=== PATIENT | female | born 1960 | race Caucasian/White ===

== ENCOUNTER 2020-12-21 19:29 | Inpatient (IN) ==
[2020-12-21] MEDS ORDERED: LACTATED RINGERS 1,000 ML IV ONE ×2 (19:47→21:20)
--- NOTE | 2020-12-21 19:53 | Emergency Department Note ---
HPI General Chief complaint: Cold/Flu Symptoms Stated complaint: fever, cough, weakness Time Seen by Provider: 12/21/20 19:47 Source: patient Mode of arrival: ambulatory Limitations: no limitations History of Present Illness HPI Narrative: Patient is a 60-year-old lady who arrives to the emergency department accompanied by her complaining of a cough. The patient says she has been having a cough since having an abdominoplasty several days ago. She had to undergo revision recently due to a fluid pocket following the initial procedure. Over the past several days she has been having worsening cough as w ell as some shortness of breath decreased exercise tolerance fever and chills. She was also hypotensive at home yesterday. She has noted some increasing drainage from her wound that is foul-smelling today. She has tried taking antipyretics and analgesics at home without much improvement in her symptoms. Due to the persistent nature of her symptoms she decided to come in for further evaluation this evening. Related Data Home Medications Medication Instructions Recorded Confirmed levothyroxine 25 mcg PO DAILY 01/08/17 11/18/18 estradiol 2 mg PO DAILY 11/28/17 11/18/18 oxycodone-acetaminophen 5 mg-325 1 tab PO Q6H 09/15/18 11/18/18 mg tablet Previous Rx's Medication Instructions Recorded gplyoljjrrdajaa-bqvrmmqxcyrfeou-HO 10 ml PO Q6H #120 ml 11/18/18 2 mg-30 mg-10 mg/5 mL oral syrup fluticasone propionate 50 2 spray INTRANASAL QDAY #16 g 11/18/18 mcg/actuation nasal spray,suspension prednisone 20 mg tablet 20 mg PO BID #10 tab 11/18/18 Allergies Allergy/AdvReac Type Severity Reaction Status Date / Time tramadol Allergy Intermediate Itching Verified 11/18/18 10:36 Review of Systems ROS ROS Narrative: Narrative: All systems ED: reviewed and negative except as stated. Cardiovascular: Reports chest pain Respiratory: Reports shortness of breath and cough Gastrointestinal: Reports nausea; Denies vomiting PFSH Narrative Patient History Narrative: Narrative: Medical/Surgical/Family History All Active Problems (Updated 12/22/20 @ 01:43 by Miguel Ramirez DO) Upper respiratory infection (Acute) Otitis media (Acute) Bronchitis (Acute) Candidal vaginitis (Acute) Respiratory crackles 1/4 way up posterior chest wall on left side (Acute) RUQ abdominal pain (Acute) Right flank discomfort (Acute) Cellulitis of trunk (Acute) Sepsis (Acute) Wheezing (Acute) Sinusitis, acute (Acute) Medical History (Updated 12/22/20 @ 01:43 by Miguel Ramirez DO) Upper respiratory infection Social History Smoking Status: Former smoker Alcohol Intake Frequency: a few times a month Substance Use: does not use Exam Narrative Narrative: Gen -patient is awake and alert and in no acute distress. HEENT -head is atraumatic. There is no conjunctival pallor or scleral icterus. CV -S1-S2, tachycardic and regular peripheral pulses are palpable. Resp -breathing is nonlabored. Have mild crackles at the bases right greater than left there is no cyanosis. GI - Abdomen is soft and mildly tender to palpation diffusely. There is a low transverse abdominal incision with multiple black nylon sutures in place. There is significant surrounding erythema and palpable warmth to the soft tissues. There is a small amount of purulent foul-smelling drainage from the incision site.. There is no guarding or rebound tenderness. Derm -skin is warm and dry. MSK -present extremities are atraumatic. Psych -patient has appropriate affect. Neuro -patient answers questions appropriately with fluent speech. Patient moves all present extremities equally. General Limitations: no limitations Course Vital Signs Vital signs: Vital Signs Temperature 99.7 F H 12/21/20 19:31 Pulse Rate 126 H 12/21/20 19:31 Respiratory Rate 16 12/21/20 19:31 Blood Pressure 132/86 12/21/20 19:31 Pulse Oximetry (%) 96 12/21/20 19:31 Temperature 99.7 F H 12/21/20 19:31 Pulse Rate 100 H 12/22/20 00:35 Respiratory Rate 16 12/21/20 19:31 Blood Pressure 110/54 12/21/20 23:46 Pulse Oximetry (%) 93 12/22/20 00:35 [facility] Narrative Medical decision making narrative: Patient presents with fever increasing pain around her incision site and purulent drainage as well as shortness of breath. Initial concern was for pneumonia or possible operative site infection. Chest x-ray does not reveal any acute infiltrates. Given this and the lack of explanation for significant dyspnea on exertion, I did obtain a CT pulmonary angiogram. This was interpreted by the overnight radiologist as demonstrating no pulmonary infiltrates or pulmonary emboli. Labs are remarkable for minimal leukocytosis and normal lactate. She remained slightly tachycardic and somewhat uncomfortable appearing throughout her emergency department stay. Given this as well as the cellulitis surrounding the patient's incision site I attempted to contact her surgeon Dr. Aguila, but was unable to reach him as he is not currently educational recruiter. I do not think the patient has a surgical emergency at this time and think it would be reasonable to admit her for IV antibiotics and close monitoring until Dr. Aguila is available. I discussed the patient's history examination and diagnostic findings with Dr. Soto, who agrees with the plan of care and accepts admission. Lab Data Result diagrams: 12/21/20 19:58 Labs: Lab Results 12/21/20 12/21/20 12/21/20 Range/Units 19:58 19:58 19:58 WBC 12.3 H (4.5-11.0) K/mcL RBC 3.63 L (4.00-5.20) M/mcL Hgb 12.4 (12.0-15.0) g/dL Hct 35.6 L (36.0-48.0) % POC Hct 37 (36-48) % MCV 98.1 (80.0-100.0) fL MCH 34.2 H (26.0-34.0) pg MCHC 34.8 (31.0-36.0) g/dL RDW 12.6 (11.5-14.5) % Plt Count 296 (140-440) K/mcL MPV 9.6 (7.4-10.4) fL Neut % (Auto) 91.5 H (38.0-78.0) % Lymph % (Auto) 1.6 L (15.0-49.0) % [place] % (Auto) 1.5 (1.0-12.0) % Eos % (Auto) 5.2 (0.0-7.0) % Baso % (Auto) 0.2 (0.0-2.0) % Lymph # (Auto) 0.20 L (1.50-4.80) K/mcL [place] # (Auto) 0.18 (0.10-0.90) K/mcL Eos # (Auto) 0.64 (0.00-0.70) K/mcL Baso # (Auto) 0.03 (0.00-0.20) K/mcL Absolute Neutrophils 11.24 H (1.80-8.00) K/mcL VBG Lactic Acid 1.3 (0.5-2.0) mmol/L POC Sodium 131 L (133-145) mEq/L POC Potassium 3.4 (3.3-5.1) mEql/L POC Chloride 103 (96-108) mEq/L POC Total CO2 19 L (22-30) mmol/L POC BUN 20 (6-20) mg/dL POC Creatinine 0.8 (0.6-1.2) mg/dL POC Glucose 117 H (70-105) mg/dL POC WB Ioniz Calcium 0.97 L (1.16-1.32) mmEq/L Urine Color Urine Appearance (Clear) Urine pH (5.0-9.0) Ur Specific [place] (1.000-1.035) Urine Protein (Negative) mg/dL Urine Glucose (UA) (Negative) mg/dL Urine Ketones (Negative) mg/dL Urine Occult Blood (Negative) mg/dL Urine Nitrate (Negative) Urine Bilirubin (Negative) mg/dL Urine Urobilinogen mg/dL Ur Leukocyte Esterase (Negative) /ug Ur Culture Indicated? 12/21/20 Range/Units 20:55 WBC (4.5-11.0) K/mcL RBC (4.00-5.20) M/mcL Hgb (12.0-15.0) g/dL Hct (36.0-48.0) % POC Hct (36-48) % MCV (80.0-100.0) fL MCH (26.0-34.0) pg MCHC (31.0-36.0) g/dL RDW (11.5-14.5) % Plt Count (140-440) K/mcL MPV (7.4-10.4) fL Neut % (Auto) (38.0-78.0) % Lymph % (Auto) (15.0-49.0) % [place] % (Auto) (1.0-12.0) % Eos % (Auto) (0.0-7.0) % Baso % (Auto) (0.0-2.0) % Lymph # (Auto) (1.50-4.80) K/mcL [place] # (Auto) (0.10-0.90) K/mcL Eos # (Auto) (0.00-0.70) K/mcL Baso # (Auto) (0.00-0.20) K/mcL Absolute Neutrophils (1.80-8.00) K/mcL VBG Lactic Acid (0.5-2.0) mmol/L POC Sodium (133-145) mEq/L POC Potassium (3.3-5.1) mEql/L POC Chloride (96-108) mEq/L POC Total CO2 (22-30) mmol/L POC BUN (6-20) mg/dL POC Creatinine (0.6-1.2) mg/dL POC Glucose (70-105) mg/dL POC WB Ioniz Calcium (1.16-1.32) mmEq/L Urine Color Bettie Urine Appearance Hazy A (Clear) Urine pH 5.0 (5.0-9.0) Ur Specific [place] 1.019 (1.000-1.035) Urine Protein Negative (Negative) mg/dL Urine Glucose (UA) Negative (Negative) mg/dL Urine Ketones Negative (Negative) mg/dL Urine Occult Blood Negative (Negative) mg/dL Urine Nitrate Negative (Negative) Urine Bilirubin Negative (Negative) mg/dL Urine Urobilinogen Negative mg/dL Ur Leukocyte Esterase Negative (Negative) /ug Ur Culture Indicated? No ED POC Tests ED POC Tests: ORACIO - SARS Antigen Negative Discharge Plan Patient/Caregiver Discharge Instructions Pt seen by TRACER BULLET CHARGING MACHINE OPERATOR/PA only: No Clinical Impression: Cellulitis of trunk, Sepsis Patient Disposition: Xfer As Inpt ([facility]) Condition: Good
[2020-12-21] MEDS ORDERED: cefTRIAXone 1 GM in DEXTROSE 5% IN WATER 50 ML IV SCH (20:00)
[2020-12-21 20:13] LABS: POC Blood Urea Nitrogen 20 mg/dL (6-20); POC CO2 19 mmol/L (22-30); POC Calcium, Ionized 0.97 mmEq/L (1.16-1.32); POC Chloride 103 mEq/L (96-108); POC Creatinine 0.8 mg/dL (0.6-1.2); POC Glucose, Random 117 mg/dL (70-105); POC Hematocrit 37 % (36-48); POC Potassium 3.4 mEql/L (3.3-5.1); POC Sodium 131 mEq/L (133-145)
[2020-12-21 21:12] LABS: Basophils # (Auto) 0.03 K/mcL (0.00-0.20); Basophils % (Auto) 0.2 % (0.0-2.0); Eosinophils # (Auto) 0.64 K/mcL (0.00-0.70); Eosinophils % (Auto) 5.2 % (0.0-7.0); Hematocrit 35.6 % (36.0-48.0); Hemoglobin 12.4 g/dL (12.0-15.0); Lymphocytes % (Auto) 1.6 % (15.0-49.0); Mean Cell Volume 98.1 fL (80.0-100.0); Mean Corpuscular HGB Conc 34.8 g/dL (31.0-36.0); Mean Platelet Volume 9.6 fL (7.4-10.4); Monocytes # (Auto) 0.18 K/mcL (0.10-0.90); Monocytes % (Auto) 1.5 % (1.0-12.0); Neutrophils % (Auto) 91.5 % (38.0-78.0); Platelet Count 296 K/mcL (140-440); RBC 3.63 M/mcL (4.00-5.20); Red Cell Distribution Width 12.6 % (11.5-14.5); WBC 12.3 K/mcL (4.5-11.0)
[2020-12-21 22:06] LABS: Appearance,Urine HAZY (Clear); Bilirubin,Urine Negative (Negative); Color,Urine AMBER; Culture Indicated,Urine No; Glucose,Urine (UA) Negative (Negative); Ketones,Urine Negative (Negative); Leukocyte Esterase,Urine Negative /ug (Negative); Nitrate,Urine Negative (Negative); Protein,Urine Negative (Negative); Specific Gravity,Urine 1.019 (1.000-1.035); Urine Blood Negative (Negative); Urobilinogen,Urine Negative
[2020-12-21] MEDS ORDERED: morphine 4 MG/ML VIAL IV ONE (23:14)
[2020-12-21] MEDS ORDERED: VANCOMYCIN 1,000 MG in 0.9 % SODIUM CHLORIDE 250 ML IV ONE (23:52)
[2020-12-22] MEDS ORDERED: MELATONIN 3 MG TABLET PO ONE (01:15)
[2020-12-22] MEDS: 0.9 % SODIUM CHLORIDE 1,000 ML IV SCH ×5 (01:50→15:34)
[2020-12-22] MEDS ORDERED: ONDANSETRON 4 MG/2 ML VIAL IV PRN ×2 (02:53→07:07)
[2020-12-22] MEDS ORDERED: oxyCODONE/APAP 5/325MG TABLET PO ONE (02:58)
[2020-12-22] MEDS: oxyCODONE/APAP 5/325MG TABLET PO PRN ×6 (03:01→18:52)
[2020-12-22] MEDS: BENZOCAINE/MENTHOL 1 LOZENGE PO PRN ×3 (07:03→22:03)
[2020-12-22] MEDS ORDERED: POTASSIUM CHLORIDE 20 MEQ PACKET PO PRN (07:07)
[2020-12-22] MEDS ORDERED: POTASSIUM CHLORIDE 40 MEQ in DEXTROSE 5% IN WATER 500 ML IV PRN (07:07)
[2020-12-22] MEDS ORDERED: ONDANSETRON 4 MG ODT TABLET SL PRN (07:07)
[2020-12-22] MEDS ORDERED: BISACODYL 10 MG SUPP.RECT PR PRN (07:07)
[2020-12-22] MEDS ORDERED: MELATONIN 3 MG TABLET PO PRN (07:07)
[2020-12-22] MEDS ORDERED: MAGNESIUM SULFATE 2 GM/50 ML BAG IV PRN (07:07)
[2020-12-22] MEDS ORDERED: POLYETHYLENE GLYCOL 3350 17 GM PACKET PO PRN (07:07)
[2020-12-22] MEDS ORDERED: VANCOMYCIN PER PHARMACY IV SCH (07:15)
--- NOTE | 2020-12-22 08:00 | XRay Report ---
HISTORY: Pneumonia, fever, cough, weakness FINDINGS: The lungs are clear. The heart, mediastinum, hortencia and pleura are normal. A mild dextroscoliotic curvature is present. The patient had prior fusion in the lower neck. There is disc space narrowing and spur formation in the lower thoracic spine IMPRESSION: No evidence of pneumonia or acute abnormality Interpreted and Authenticated by: Massimo Grullon 12/22/20
--- NOTE | 2020-12-22 08:17 | Cat Scan Report ---
History: Pneumonia, dyspnea, fever cough and weakness technique: The chest was imaged following injection of intravenous nonionic contrast scanning during the pulmonary arterial phase. Sagittal, coronal and axial MIPS images were created. The radiation exposure was limited using dose reduction technology. FINDINGS: The pulmonary arteries are normal with no intraluminal filling defects. There are small pleural-based parenchymal scar is seen posteriorly medially in the right apex and in the inferior segment of lingula. Minor atelectasis is present in the posterior basal segments of both lower lobes. There is a tiny layering right-sided pleural effusion. There is no consolidating infiltrate and no evidence of a mass. There is mild thickening of some of the thoracolumbar bronchi in both lower lobes indicating bronchitis. There is no mucus plugging or evidence of an intraluminal mass. The heart is normal in size and contour. There is minimal plaque formation in the aorta and right coronary artery. Patient has had prior cervical fusion with discectomy in the lower neck. There is ankylosis across the T10-11 disc space. There is a row of anastomotic sutures around the greater curvature the stomach following prior gastric reduction surgery. Mild fatty infiltration of the liver is noted. There is a 4.5 x 5.6 cm simple cyst in segment 4A of the left lobe of the liver. IMPRESSION: No evidence of pulmonary emboli Low-grade bronchitis Minor atelectasis posteriorly in both lung bases with a tiny right-sided pleural effusion Interpreted and Authenticated by: Massimo Grullon 12/22/20
--- NOTE | 2020-12-22 08:34 | Internal Med History&Physical ---
HPI History of Present Illness Patient information: Note initiated : 12/22/20 at 8:27 am Service Date, if different from initiated Date: [] Patient: Daisy Murphy a 60 y/o F admitted on 12/22/20 for fever, cough, weakness. Chief Complaint: Draining abdominal wound/fever shaking chills and dizziness History of present illness: Ms. Murphy is a 60 year old F with known history of hypothyroidism/reactive airway disease who recently underwent abdominoplasty a month ago. Patient developed postoperative abdominal incision wound infection. She underwent surgical debridement cleaning and revision a few days ago however she continued to notice increasing drainage around the right side of the incision site, shaking chills, weakness, low blood pressure and low-grade fever. She has not been able to function and with increasing concerns presents to the ER for evaluation. Initial work-up was consistent with early sepsis with leukocytosis. Cultures were drawn and patient was started on antibiotic coverage including vancomycin/Rocephin. Attempts to discuss case with surgery were made and subsequently hospitalist service was consulted for admission in light of above until patient can be reviewed by operating surgeon Dr. Meeks At the time of my evaluation patient is alert and oriented. She endorses history as above. She denies abdominal pain, diarrhea, dysuria endorses lightheadedness, dizziness and weakness. She endorses that each time she is gets up there is a spontaneous/passive drainage of pus foul-smelling around the incision site. She denies hematuria/cough but endorses to shortness of breath fatigue and weakness Review of systems 10 point review system was performed and is negative except for 1 discussed above PFSH PFSH All Active Problems (Updated 12/22/20 @ 01:43 by Miguel Ramirez DO) Upper respiratory infection (Acute) Otitis media (Acute) Bronchitis (Acute) Candidal vaginitis (Acute) Respiratory crackles 1/[address] way up posterior chest wall on left side (Acute) RUQ abdominal pain (Acute) Right flank discomfort (Acute) Cellulitis of trunk (Acute) Sepsis (Acute) Wheezing (Acute) Sinusitis, acute (Acute) Medical History (Updated 12/22/20 @ 01:43 by Miguel Ramirez DO) Upper respiratory infection Social History (Updated 11/18/18 @ 10:52 by Isaias Rivera PA-C) alcohol intake frequency: a few times a month substance use type: does not use MEDS/ALLERGIES Home Medications and Allergies Home Medications Medication Instructions Recorded Confirmed Type levothyroxine 25 mcg PO DAILY 01/08/17 12/22/20 History estradiol 2 mg PO DAILY 11/28/17 12/22/20 History oxycodone-acetaminophen 5 mg-325 1 tab PO Q6HP PRN 09/15/18 12/22/20 History mg tablet methocarbamol 750 mg PO HSP PRN 12/22/20 12/22/20 History Allergies Allergy/AdvReac Type Severity Reaction Status Date / Time tramadol Allergy Intermediate Itching Verified 11/18/18 10:36 EXAM Constitutional Vitals: Temp Pulse Resp BP Pulse Ox 97.9 F 96 H 18 100/57 96 12/22/20 07:39 12/22/20 07:39 12/22/20 07:39 12/22/20 07:39 12/22/20 07:39 Anxious but alert and cooperative Head normocephalic Oral cavity moist No ear nose discharge Eye movement symmetrical Neck supple no lymphadenopathy S1-S2 regular tachycardia Shallow breathing Suprapubic 10 + lower abdominal incision scar with sub incision site induration/erythema cm and purulent drainage of the right edge of incision site Lower extremity no cyanosis clubbing or joint swelling Skin no suspicious lesion Psych anxious no hallucination Neuro normal higher function GCS 15 DATA Data Completed and Pending Labs: Labs from last 24 hours 12/22/20 12/22/20 12/21/20 07:47 07:42 20:55 WBC RBC Hgb Hct POC Hct MCV MCH MCHC RDW Plt Count MPV Neut % (Auto) Lymph % (Auto) [place] % (Auto) Eos % (Auto) Baso % (Auto) Lymph # (Auto) [place] # (Auto) Eos # (Auto) Baso # (Auto) Absolute Neutrophils VBG Lactic Acid 1.5 POC Sodium POC Potassium POC Chloride POC Total CO2 POC BUN POC Creatinine POC Glucose POC WB Ioniz Calcium Procalcitonin Pending Urine Color Bettie Urine Appearance Hazy A Urine pH 5.0 Ur Specific [place] 1.019 Urine Protein Negative Urine Glucose (UA) Negative Urine Ketones Negative Urine Occult Blood Negative Urine Nitrate Negative Urine Bilirubin Negative Urine Urobilinogen Negative Ur Leukocyte Esterase Negative Ur Culture Indicated? No 12/21/20 12/21/20 12/21/20 19:58 19:58 19:58 WBC 12.3 H RBC 3.63 L Hgb 12.4 Hct 35.6 L POC Hct 37 MCV 98.1 MCH 34.2 H MCHC 34.8 RDW 12.6 Plt Count 296 MPV 9.6 Neut % (Auto) 91.5 H Lymph % (Auto) 1.6 L [place] % (Auto) 1.5 Eos % (Auto) 5.2 Baso % (Auto) 0.2 Lymph # (Auto) 0.20 L [place] # (Auto) 0.18 Eos # (Auto) 0.64 Baso # (Auto) 0.03 Absolute Neutrophils 11.24 H VBG Lactic Acid 1.3 POC Sodium 131 L POC Potassium 3.4 POC Chloride 103 POC Total CO2 19 L POC BUN 20 POC Creatinine 0.8 POC Glucose 117 H POC WB Ioniz Calcium 0.97 L Procalcitonin Urine Color Urine Appearance Urine pH Ur Specific [place] Urine Protein Urine Glucose (UA) Urine Ketones Urine Occult Blood Urine Nitrate Urine Bilirubin Urine Urobilinogen Ur Leukocyte Esterase Ur Culture Indicated? Preliminary micro results at discharge 12/21/20 21:05 Gram Stain - Preliminary Abdomen - Lower A/P Narrative A/P Narrative: * Abdominal incision site infection-surgery and wound care consulted. Culture sent * Severe sepsis with hypotension- secondary above-continue management guidelines, broad antibiotic coverage to include anaerobes including Zosyn/vancomycin for MRSA coverage. No evidence of endorgan hypoperfusion, normal lactate * Hypokalemia start replacement * Hyponatremia continue monitoring * History of hypothyroidism continue thyroxine * Full code * prophylaxis Heparin Plan * Inpatient admission * Sepsis management guidelines * Surgery/wound care consult * Broad empiric antibiotic coverage for MRSA/anaerobes * pre-existing medical condition management as above * PT OT nutrition support * Discharge planning per surgery and wound care Time Spent With Patient Time: Total time spent is greater than 50% in coordination of care (as documented) at patient's floor/unit and/or counseling patient: QUALITY Stroke Symptom Onset Unknown: No VTE Deep Vein Thrombosis/Pulmonary Embolism Present on Admission: No
[2020-12-22] MEDS: PIPERACILLIN SODIUM/TAZOBACTAM 3.375 GM in DEXTROSE 5% IN WATER 50 ML IV SCH ×3 (08:54→17:51)
[2020-12-22] MEDS: DOCUSATE SODIUM 100 MG CAPSULE PO SCH ×2 (08:54→21:49)
[2020-12-22] MEDS: MULTIVIT,THER IRON,CA,FA & MIN 1 TABLET PO SCH (08:54)
[2020-12-22] MEDS: HEPARIN 5,000 UNIT/ML VIAL SQ SCH ×2 (08:55→21:49)
[2020-12-22] MEDS: VANCOMYCIN 1,000 MG in 0.9 % SODIUM CHLORIDE 250 ML IV SCH ×2 (10:58→21:00)
[2020-12-22] MEDS: 0.9 % SODIUM CHLORIDE 10 ML SYRINGE IV SCH ×2 (13:59→21:49)
[2020-12-22] MEDS: BENZONATATE 100 MG CAPSULE PO SCH (19:57)
[2020-12-22] MEDS: SENNOSIDES/DOCUSATE SODIUM 1 TAB TABLET PO SCH (21:49)
[2020-12-23] MEDS: PIPERACILLIN SODIUM/TAZOBACTAM 3.375 GM in DEXTROSE 5% IN WATER 50 ML IV SCH ×5 (00:35→23:46)
[2020-12-23] MEDS: BENZONATATE 100 MG CAPSULE PO SCH ×7 (00:35→23:53)
[2020-12-23] MEDS: ACETAMINOPHEN 325 MG TABLET PO PRN (02:23)
[2020-12-23] MEDS: 0.9 % SODIUM CHLORIDE 1,000 ML IV SCH ×3 (05:16→14:37)
[2020-12-23] MEDS: 0.9 % SODIUM CHLORIDE 10 ML SYRINGE IV SCH ×3 (05:17→22:02)
[2020-12-23] MEDS: oxyCODONE/APAP 5/325MG TABLET PO PRN ×4 (05:26→22:02)
[2020-12-23] MEDS: HEPARIN 5,000 UNIT/ML VIAL SQ SCH ×2 (08:48→20:02)
[2020-12-23] MEDS: MULTIVIT,THER IRON,CA,FA & MIN 1 TABLET PO SCH (08:48)
[2020-12-23] MEDS: DOCUSATE SODIUM 100 MG CAPSULE PO SCH ×2 (08:48→20:02)
[2020-12-23 09:32] LABS: Basophils # (Auto) 0.03 K/mcL (0.00-0.20); Basophils % (Auto) 0.3 % (0.0-2.0); Eosinophils # (Auto) 0.78 K/mcL (0.00-0.70); Eosinophils % (Auto) 7.1 % (0.0-7.0); Hemoglobin 11.8 g/dL (12.0-15.0); Lymphocytes # (Auto) 1.06 K/mcL (1.50-4.80); Lymphocytes % (Auto) 9.6 % (15.0-49.0); Mean Cell Volume 97.8 fL (80.0-100.0); Mean Corpuscular HGB Conc 33.7 g/dL (31.0-36.0); Monocytes # (Auto) 0.44 K/mcL (0.10-0.90); Platelet Count 311 K/mcL (140-440); RBC 3.58 M/mcL (4.00-5.20); WBC 11.1 K/mcL (4.5-11.0)
[2020-12-23 09:55] LABS: ALT/SGPT 57 U/L (<40); AST/SGOT 32 U/L (<32); Albumin 2.7 gm/dL (3.2-5.2); Albumin/Globulin Ratio 1.1 (1.0-2.3); Alkaline Phosphatase 274 U/L (39-117); Bilirubin,Direct 0.2 mg/dL (<0.3); Bilirubin,Total 0.4 mg/dL (0.1-1.0); Blood Urea Nitrogen 9 mg/dL (6-20); Calcium 8.1 mg/dL (8.6-10.4); Carbon Dioxide 23 mmol/L (22-30); Chloride 109 mmol/L (96-108); Globulin 2.4 gm/dL (2.2-3.7); Glomerular Filtration Rate 99; Glucose 108 mg/dL (70-105); Lactate Dehydrogenase 230 U/L (135-225); Phosphorous 2.3 mg/dL (2.5-4.5); Triglycerides 231 mg/dL (<150); Uric Acid 1.9 mg/dL (2.5-8.0)
[2020-12-23] MEDS: VANCOMYCIN 1,000 MG in 0.9 % SODIUM CHLORIDE 250 ML IV SCH (11:07)
[2020-12-23] MEDS: VANCOMYCIN 1,500 MG in 0.9 % SODIUM CHLORIDE 500 ML IV SCH ×2 (11:38→20:22)
[2020-12-23] MEDS: SENNOSIDES/DOCUSATE SODIUM 1 TAB TABLET PO SCH (20:02)
--- NOTE | 2020-12-23 21:40 | Internal Med Progress Note ---
SUBJECTIVE Subjective Patient information: Note initiated : 12/23/20 at 9:33 pm Service Date, if different from initiated Date: [] Patient: Daisy Murphy 60 y/o F admitted on 12/22/20 for fever, cough, weakness. Chief Complaint: [abdominal wound site infection, bacteremia] Overnight: wound culture grew S aureus and Enterobacter Cloacae Complex; Blood culture grew Coagulase negative staph. Low grade fever with Tmax 37.8 overnight. Subjective: Mild "sensitive to touch" pain of abdominal wound. Low grade fever with Tmax 37.8 overnight. Denies general body weakness. Good appetite. Constitutional Vitals: Vital Signs Temp Pulse Resp BP Pulse Ox 36.6 C 90 20 136/66 97 12/23/20 16:00 12/23/20 16:00 12/23/20 16:00 12/23/20 16:00 12/23/20 16:00 Period Temp Pulse Resp BP Sys/Hernandez Pulse Ox Last 24 Hr 36.6 C-37.3 C 80-109 18-20 101-136/50-66 94-97 Intake and Output 12/23/20 12/23/20 12/23/20 05:59 13:59 21:59 Intake Total 1300 1700 1340 Output Total 950 600 200 Balance 350 1100 1140 Intake & Output: Intake & Output 12/23/20 12/23/20 12/23/20 05:59 13:59 21:59 Intake Total 1300 1700 1340 Output Total 950 600 200 Balance 350 1100 1140 Intake: IV 1300 550 300 Sodium Chloride 0.9% 1,000 ml @ 1000 200 50 mls/hr IV .Q20H [facility] Rx#: [id number] Zosyn 3.375 gm In Dextrose 5% 50 50 100 in Water 50 ml @ 100 mls/hr IV Q6H [facility] Rx#:[id number] Vancomycin 1,000 mg In Sodium 250 Chloride 0.9% 250 ml @ 250 mls/ hr IV Q12H [facility] Rx#:[id number] Vancomycin 1,500 mg In Sodium 500 Chloride 0.9% 500 ml @ 333.3 mls/hr IV Q12H [facility] Rx#: [id number] Oral 0 1150 1040 Output: Void Amount 950 600 200 Other: Meal Lunch Dinner Percent of Meal Consumed 50% 100% Feeding Ability Assist with Tray Set Up Assist with Tray Set Up Urine Appearance Clear Urine Color Pale Straw Straw Urine Odor Normal Normal General appearance: cooperative and no acute distress Head Head exam: Present atraumatic and normocephalic Eye Eye exam: Present EOMI and PERRL ENT ENT exam: Present mucous membranes moist, normal exam and normal external ear exam Neck Neck exam: Present normal inspection; Absent lymphadenopathy, tenderness and thyromegaly Respiratory Respiratory exam: Absent accessory muscle use, respiratory distress and wheezes Cardiovascular Cardiovascular exam: Present normal rate and rhythm; Absent JVD GI/Abdominal GI/Abdominal exam: Present normal bowel sounds and soft; Absent organomegaly and tenderness Extremities Exam Extremities exam: Present full ROM, normal capillary refill and normal inspection; Absent tenderness Neurological Exam Neurological exam: Present alert, CN II-XII intact and oriented X3; Absent motor sensory deficit Psychiatric Psychiatric exam: Present normal affect and normal mood; Absent anxious and depressed Skin Skin exam: Present dry Additional comments: Abdominal surgical wound with suture; no wound dishesion or pustular formation. Mild erythema around the surgical site. OBJ DATA Labs CBC & Chem 7: 12/23/20 05:47 12/23/20 05:47 Labs: Abnormal Lab Results 12/23/20 12/23/20 12/22/20 05:47 05:47 07:47 WBC 11.1 H RBC 3.58 L Hgb 11.8 L Hct 35.0 L MCH Neut % (Auto) 79.0 H Lymph % (Auto) 9.6 L Eos % (Auto) 7.1 H Lymph # (Auto) 1.06 L Eos # (Auto) 0.78 H Absolute Neutrophils 8.75 H POC Sodium Chloride 109 H POC Total CO2 Anion Gap 7.0 L Glucose 108 H POC Glucose Uric Acid 1.9 L Calcium 8.1 L POC WB Ioniz Calcium Phosphorus 2.3 L GGT 125 H AST 32 H ALT 57 H Alkaline Phosphatase 274 H Lactate Dehydrogenase 230 H Total Protein 5.1 L Albumin 2.7 L Triglycerides 231 H Procalcitonin 1.15 H Urine Appearance 12/21/20 12/21/20 12/21/20 20:55 19:58 19:58 WBC 12.3 H RBC 3.63 L Hgb Hct 35.6 L MCH 34.2 H Neut % (Auto) 91.5 H Lymph % (Auto) 1.6 L Eos % (Auto) Lymph # (Auto) 0.20 L Eos # (Auto) Absolute Neutrophils 11.24 H POC Sodium 131 L Chloride POC Total CO2 19 L Anion Gap Glucose POC Glucose 117 H Uric Acid Calcium POC WB Ioniz Calcium 0.97 L Phosphorus GGT AST ALT Alkaline Phosphatase Lactate Dehydrogenase Total Protein Albumin Triglycerides Procalcitonin Urine Appearance Hazy A Meds: Medications Acetaminophen (Acetaminophen 325 Mg Tablet) 650 mg PO Q4-6HP PRN; Protocol PRN Reason: Per Pain Protocol/Fever > 101 Last Admin: 12/23/20 02:23 Dose: 650 mg Documented by: Benzonatate (Benzonatate 100 Mg Capsule) 200 mg PO Q4 [facility] Last Admin: 12/23/20 20:02 Dose: 200 mg Documented by: Bisacodyl (Bisacodyl 10 Mg Supp.Rect) 10 mg AL Q2-3DAYS PRN PRN Reason: Constipation Docusate Sodium (Docusate Sodium 100 Mg Capsule) 100 mg PO BID [facility] Last Admin: 12/23/20 20:02 Dose: 100 mg Documented by: Heparin Sodium (Porcine) (Heparin 5,000 Unit/Ml Vial) 5,000 unit SQ Q12 [facility] Last Admin: 12/23/20 20:02 Dose: 5,000 unit Documented by: Potassium Chloride 40 meq/ (Dextrose) 520 mls @ 130 mls/hr IV UD PRN PRN Reason: K+ = or < 3.5 Acetaminophen (Ofirmev) 650 mg in 65 mls @ 130 mls/hr IV Q6HP PRN; Protocol PRN Reason: Per Pain Protocol/Fever > 101 Magnesium Sulfate (Magnesium Sulfate) 2 gm in 50 mls @ 50 mls/hr IV UD PRN PRN Reason: MG = or < 1.7 Piperacillin Sod/Tazobactam (Sod 3.375 gm/ Dextrose) 50 mls @ 100 mls/hr IV Q6H [facility]; Protocol Last Infusion: 12/23/20 20:50 Dose: Infused Documented by: Vancomycin HCl 1,500 mg/ (Sodium Chloride) 500 mls @ 333.3 mls/hr IV Q12H [facility] Last Admin: 12/23/20 20:22 Dose: 333 mls/hr Documented by: Iron Carb/Multivit/[place]/Folic Acid (Multivit,Ther Iron,Ca,Fa & Min 1 Tablet) 1 tab PO DAILY [facility] Last Admin: 12/23/20 08:48 Dose: 1 tab Documented by: Melatonin (Melatonin 3 Mg Tablet) 3 mg PO HSP PRN PRN Reason: Insomnia Last Admin: 12/22/20 21:49 Dose: 3 mg Documented by: Ondansetron HCl (Ondansetron 4 Mg/2 Ml Vial) 4 mg IV Q4HP PRN PRN Reason: Nausea And Vomiting Ondansetron HCl (Ondansetron 4 Mg Odt Tablet) 4 mg SL Q4-6HP PRN; Protocol PRN Reason: Nausea And Vomiting Ondansetron HCl (Ondansetron 4 Mg/2 Ml Vial) 4 mg IV Q4-6HP PRN; Protocol PRN Reason: Nausea And Vomiting Oxycodone/Acetaminophen (Oxycodone/Apap 5/325mg Tablet) 1 tab PO Q4HP PRN; Protocol PRN Reason: Per Pain Protocol Last Admin: 12/23/20 16:02 Dose: 1 tab Documented by: Polyethylene Glycol (Polyethylene Glycol 3350 17 Gm Packet) 17 gm PO DAILYP PRN PRN Reason: Constipation Last Admin: 12/23/20 10:09 Dose: 17 gm Documented by: Potassium Chloride (Potassium Chloride 20 Meq Packet) 40 meq PO DAILYP PRN PRN Reason: K+ < 3.5 Senna/Docusate Sodium (Sennosides/Docusate Sodium 1 Tab Tablet) 1 tab PO HS [facility] Last Admin: 12/23/20 20:02 Dose: Not Given Documented by: Sodium Chloride (0.9 % Sodium Chloride 10 Ml Syringe) 10 ml IV Q8 [facility] Last Admin: 12/23/20 14:33 Dose: Not Given Documented by: Throat Lozenges (Benzocaine/Menthol 1 Lozenge) 1 lozenge PO PRN PRN PRN Reason: Sore Throat Last Admin: 12/22/20 22:03 Dose: 1 lozenge Documented by: Vancomycin HCl (Vancomycin Per Pharmacy) 1 order IV UD [facility]; Protocol A/P Assessment and plan (1) Cellulitis of trunk: Status: Acute Qualifiers: Site of cellulitis of trunk: abdominal wall Qualified Code(s): L03.311 - Cellulitis of abdominal wall (2) Sepsis: Status: Acute Qualifiers: Sepsis acute organ dysfunction status: without acute organ dysfunction Sepsis type: sepsis due to unspecified organism Qualified Code(s): A41.9 - Sepsis, unspecified organism (3) Gram-positive bacteremia: Status: Acute Narrative A/P Narrative: 1. Sepsis with gram positive bacteremia and abdominal surgical site infection: Blood culture grew coagulase negative staph; Wound culture grew Enterobacter Cloacae Complex and S aureus Repeat Blood culture tomorrow Vancomycin Zosyn Percocet PRN pain Tylenol PRN fever PT OT evaluation and treatment for placement planning Continue to follow plastic surgeon recs. for wound care management Time Spent With Patient Time: Total time spent is greater than 50% in coordination of care (as documented) at patient's floor/unit and/or counseling patient: Total time spent with greater than 50% in coordination of care (as documented) at patient's floor/unit and/or counseling patient:: 15 - 24 minutes QUALITY Stroke Symptom Onset Unknown: No VTE Deep Vein Thrombosis/Pulmonary Embolism Present on Admission: No
[2020-12-24] MEDS: oxyCODONE/APAP 5/325MG TABLET PO PRN ×4 (03:45→21:33)
[2020-12-24] MEDS: BENZONATATE 100 MG CAPSULE PO SCH ×7 (03:50→20:27)
[2020-12-24] MEDS: PIPERACILLIN SODIUM/TAZOBACTAM 3.375 GM in DEXTROSE 5% IN WATER 50 ML IV SCH ×3 (05:46→18:58)
[2020-12-24] MEDS: 0.9 % SODIUM CHLORIDE 10 ML SYRINGE IV SCH ×4 (05:47→20:27)
[2020-12-24] MEDS: ACETAMINOPHEN 650 MG/65 ML BAG IV PRN ×2 (07:50→16:59)
[2020-12-24 08:22] LABS: Basophils # (Auto) 0.03 K/mcL (0.00-0.20); Basophils % (Auto) 0.3 % (0.0-2.0); Eosinophils # (Auto) 0.79 K/mcL (0.00-0.70); Eosinophils % (Auto) 8.5 % (0.0-7.0); Hematocrit 31.4 % (36.0-48.0); Hemoglobin 10.6 g/dL (12.0-15.0); Lymphocytes # (Auto) 2.01 K/mcL (1.50-4.80); Lymphocytes % (Auto) 21.7 % (15.0-49.0); Mean Cell Volume 97.8 fL (80.0-100.0); Mean Corpuscular HGB Conc 33.8 g/dL (31.0-36.0); Mean Platelet Volume 9.6 fL (7.4-10.4); Monocytes % (Auto) 8.6 % (1.0-12.0); Neutrophils % (Auto) 60.9 % (38.0-78.0); Platelet Count 270 K/mcL (140-440); RBC 3.21 M/mcL (4.00-5.20); Red Cell Distribution Width 13.2 % (11.5-14.5); WBC 9.3 K/mcL (4.5-11.0)
[2020-12-24 08:40] LABS: ALT/SGPT 73 U/L (<40); AST/SGOT 95 U/L (<32); Albumin 2.3 gm/dL (3.2-5.2); Albumin/Globulin Ratio 0.9 (1.0-2.3); Alkaline Phosphatase 243 U/L (39-117); Bilirubin,Direct < 0.2 mg/dL (0-0.3); Bilirubin,Total 0.4 mg/dL (0.1-1.0); Blood Urea Nitrogen 7 mg/dL (6-20); Calcium 7.6 mg/dL (8.6-10.4); Carbon Dioxide 21 mmol/L (22-30); Chloride 106 mmol/L (96-108); Globulin 2.5 gm/dL (2.2-3.7); Glomerular Filtration Rate 99; Glucose 106 mg/dL (70-105); Lactate Dehydrogenase 248 U/L (135-225); Phosphorous 2.2 mg/dL (2.5-4.5); Triglycerides 190 mg/dL (<150); Uric Acid 1.8 mg/dL (2.5-8.0)
[2020-12-24] MEDS: MULTIVIT,THER IRON,CA,FA & MIN 1 TABLET PO SCH (09:30)
[2020-12-24] MEDS: HEPARIN 5,000 UNIT/ML VIAL SQ SCH ×2 (09:30→20:27)
[2020-12-24] MEDS ORDERED: METHOCARBAMOL 750 MG TABLET PO PRN (10:08)
[2020-12-24] MEDS: DOCUSATE SODIUM 100 MG CAPSULE PO SCH ×2 (10:35→19:24)
[2020-12-24] MEDS: LEVOTHYROXINE 25 MCG TABLET PO SCH (10:41)
[2020-12-24] MEDS: ESTRADIOL 1 MG TABLET PO SCH (10:41)
[2020-12-24] MEDS: VANCOMYCIN 1,500 MG in 0.9 % SODIUM CHLORIDE 500 ML IV SCH ×2 (10:56→21:34)
[2020-12-24] MEDS: LOPERAMIDE 2 MG CAPSULE PO PRN ×2 (17:05→19:28)
--- NOTE | 2020-12-24 18:51 | Internal Med Progress Note ---
SUBJECTIVE Subjective Patient information: Note initiated : 12/24/20 at 6:45 pm Service Date, if different from initiated Date: [] Patient: Daisy Murphy 60 y/o F admitted on 12/22/20 for fever, cough, weakness. Chief Complaint: [abdominal surgical wound infection] Overnight: Afebrile. Been on room air. Otherwise there was no other major overnight events. Subjective: Mild abdominal pain around the surgical wound. Denies fever or chills. c/o cough with yellow sputum production. Constitutional Vitals: Vital Signs Temp Pulse Resp BP Pulse Ox 36.4 C 91 H 20 116/64 94 12/24/20 16:00 12/24/20 16:00 12/24/20 16:00 12/24/20 16:00 12/24/20 16:00 Period Temp Pulse Resp BP Sys/Hernandez Pulse Ox Last 24 Hr 35.9 C-37.3 C 80-96 14-20 114-134/64-69 93-97 Intake and Output 12/24/20 12/24/20 12/24/20 05:59 13:59 21:59 Intake Total 1070 1025 865 Output Total 550 300 Balance 520 725 865 Weight 90.945 kg Patient Weight 12/25/20 05:59 Weight 90.945 kg Intake & Output: Intake & Output 12/24/20 12/24/20 12/24/20 05:59 13:59 21:59 Intake Total 1070 1025 865 Output Total 550 300 Balance 520 725 865 Weight 90.945 kg Intake: IV 1070 665 65 Zosyn 3.375 gm In Dextrose 5% 50 100 in Water 50 ml @ 100 mls/hr IV Q6H [facility] Rx#:[id number] Potassium Chloride 40 Meq In 520 Dextrose 5% in Water 500 ml @ 130 mls/hr IV UD PRN Rx#: [id number] Vancomycin 1,500 mg In Sodium 500 500 Chloride 0.9% 500 ml @ 333.3 mls/hr IV Q12H [facility] Rx#: [id number] Oral 0 360 800 Output: Void Amount 300 Urine/Stool Mix 550 Other: Meal Breakfast Lunch Percent of Meal Consumed 75% 100% Feeding Ability Assist with Tray Set Up Urine Color Straw Urine Odor Normal Stool Color Brown Stool Consistency Liquid Loose General appearance: cooperative and no acute distress Head Head exam: Present atraumatic and normocephalic Eye Eye exam: Present EOMI and PERRL ENT ENT exam: Present mucous membranes moist, normal exam and normal external ear exam Neck Neck exam: Present normal inspection; Absent lymphadenopathy, tenderness and thyromegaly Respiratory Respiratory exam: Absent accessory muscle use, respiratory distress and wheezes Cardiovascular Cardiovascular exam: Present normal rate and rhythm; Absent JVD GI/Abdominal GI/Abdominal exam: Present normal bowel sounds, soft and tenderness; Absent organomegaly Additional comments: Abdominal surgical wound, with sutures in place. Slight amount of serous discharge from the wound. Mild tenderness to palpation. Extremities Exam Extremities exam: Present full ROM, normal capillary refill and normal inspection; Absent tenderness Neurological Exam Neurological exam: Present alert, CN II-XII intact and oriented X3; Absent motor sensory deficit Psychiatric Psychiatric exam: Present normal affect and normal mood; Absent anxious and depressed Skin Skin exam: Present dry and intact OBJ DATA Labs CBC & Chem 7: 12/24/20 06:14 12/24/20 06:14 Labs: Abnormal Lab Results 12/24/20 12/24/20 12/23/20 06:14 06:14 05:47 WBC RBC 3.21 L Hgb 10.6 L Hct 31.4 L MCH Neut % (Auto) Lymph % (Auto) Eos % (Auto) 8.5 H Lymph # (Auto) Eos # (Auto) 0.79 H Absolute Neutrophils POC Sodium Chloride 109 H Carbon Dioxide 21 L POC Total CO2 Anion Gap 7.0 L Glucose 106 H 108 H POC Glucose Uric Acid 1.8 L 1.9 L Calcium 7.6 L 8.1 L POC WB Ioniz Calcium Phosphorus 2.2 L 2.3 L GGT 110 H 125 H AST 95 H 32 H ALT 73 H 57 H Alkaline Phosphatase 243 H 274 H Lactate Dehydrogenase 248 H 230 H Total Protein 4.8 L 5.1 L Albumin 2.3 L 2.7 L Albumin/Globulin Ratio 0.9 L Triglycerides 190 H 231 H Procalcitonin Urine Appearance 12/23/20 12/22/20 12/21/20 05:47 07:47 20:55 WBC 11.1 H RBC 3.58 L Hgb 11.8 L Hct 35.0 L MCH Neut % (Auto) 79.0 H Lymph % (Auto) 9.6 L Eos % (Auto) 7.1 H Lymph # (Auto) 1.06 L Eos # (Auto) 0.78 H Absolute Neutrophils 8.75 H POC Sodium Chloride Carbon Dioxide POC Total CO2 Anion Gap Glucose POC Glucose Uric Acid Calcium POC WB Ioniz Calcium Phosphorus GGT AST ALT Alkaline Phosphatase Lactate Dehydrogenase Total Protein Albumin Albumin/Globulin Ratio Triglycerides Procalcitonin 1.15 H Urine Appearance Hazy A 12/21/20 12/21/20 19:58 19:58 WBC 12.3 H RBC 3.63 L Hgb Hct 35.6 L MCH 34.2 H Neut % (Auto) 91.5 H Lymph % (Auto) 1.6 L Eos % (Auto) Lymph # (Auto) 0.20 L Eos # (Auto) Absolute Neutrophils 11.24 H POC Sodium 131 L Chloride Carbon Dioxide POC Total CO2 19 L Anion Gap Glucose POC Glucose 117 H Uric Acid Calcium POC WB Ioniz Calcium 0.97 L Phosphorus GGT AST ALT Alkaline Phosphatase Lactate Dehydrogenase Total Protein Albumin Albumin/Globulin Ratio Triglycerides Procalcitonin Urine Appearance Meds: Medications Acetaminophen (Acetaminophen 325 Mg Tablet) 650 mg PO Q4-6HP PRN; Protocol PRN Reason: Per Pain Protocol/Fever > 101 Last Admin: 12/23/20 02:23 Dose: 650 mg Documented by: Benzonatate (Benzonatate 100 Mg Capsule) 200 mg PO Q4H [facility] Last Admin: 12/24/20 16:59 Dose: 200 mg Documented by: Bisacodyl (Bisacodyl 10 Mg Supp.Rect) 10 mg UT Q2-3DAYS PRN PRN Reason: Constipation Docusate Sodium (Docusate Sodium 100 Mg Capsule) 100 mg PO BID [facility] Last Admin: 12/24/20 10:35 Dose: Not Given Documented by: Estradiol (Estradiol 1 Mg Tablet) 2 mg PO DAILY [facility] Last Admin: 12/24/20 10:41 Dose: 2 mg Documented by: Heparin Sodium (Porcine) (Heparin 5,000 Unit/Ml Vial) 5,000 unit SQ Q12 [facility] Last Admin: 12/24/20 09:30 Dose: 5,000 unit Documented by: Potassium Chloride 40 meq/ (Dextrose) 520 mls @ 130 mls/hr IV UD PRN PRN Reason: K+ = or < 3.5 Last Infusion: 12/24/20 04:14 Dose: Infused Documented by: Acetaminophen (Ofirmev) 650 mg in 65 mls @ 130 mls/hr IV Q6HP PRN; Protocol PRN Reason: Per Pain Protocol/Fever > 101 Last Infusion: 12/24/20 17:29 Dose: Infused Documented by: Magnesium Sulfate (Magnesium Sulfate) 2 gm in 50 mls @ 50 mls/hr IV UD PRN PRN Reason: MG = or < 1.7 Piperacillin Sod/Tazobactam (Sod 3.375 gm/ Dextrose) 50 mls @ 100 mls/hr IV Q6H [facility]; Protocol Last Infusion: 12/24/20 12:54 Dose: Infused Documented by: Vancomycin HCl 1,500 mg/ (Sodium Chloride) 500 mls @ 333.3 mls/hr IV Q12H [facility] Last Infusion: 12/24/20 12:27 Dose: Infused Documented by: Iron Carb/Multivit/[place]/Folic Acid (Multivit,Ther Iron,Ca,Fa & Min 1 Tablet) 1 tab PO DAILY [facility] Last Admin: 12/24/20 09:30 Dose: 1 tab Documented by: Levothyroxine Sodium (Levothyroxine 25 Mcg Tablet) 25 mcg PO QAMAC [facility] Last Admin: 12/24/20 10:41 Dose: 25 mcg Documented by: Loperamide HCl (Loperamide 2 Mg Capsule) 2 mg PO Q2HP PRN PRN Reason: Diarrhea Last Admin: 12/24/20 17:05 Dose: 2 mg Documented by: Melatonin (Melatonin 3 Mg Tablet) 3 mg PO HSP PRN PRN Reason: Insomnia Last Admin: 12/22/20 21:49 Dose: 3 mg Documented by: Methocarbamol (Methocarbamol 750 Mg Tablet) 750 mg PO HSP PRN PRN Reason: Muscle Spasm Ondansetron HCl (Ondansetron 4 Mg/2 Ml Vial) 4 mg IV Q4HP PRN PRN Reason: Nausea And Vomiting Ondansetron HCl (Ondansetron 4 Mg Odt Tablet) 4 mg SL Q4-6HP PRN; Protocol PRN Reason: Nausea And Vomiting Ondansetron HCl (Ondansetron 4 Mg/2 Ml Vial) 4 mg IV Q4-6HP PRN; Protocol PRN Reason: Nausea And Vomiting Oxycodone/Acetaminophen (Oxycodone/Apap 5/325mg Tablet) 1 tab PO Q4HP PRN; Protocol PRN Reason: Per Pain Protocol Last Admin: 12/24/20 12:28 Dose: 1 tab Documented by: Polyethylene Glycol (Polyethylene Glycol 3350 17 Gm Packet) 17 gm PO DAILYP PRN PRN Reason: Constipation Last Admin: 12/23/20 10:09 Dose: 17 gm Documented by: Potassium Chloride (Potassium Chloride 20 Meq Packet) 40 meq PO DAILYP PRN PRN Reason: K+ < 3.5 Senna/Docusate Sodium (Sennosides/Docusate Sodium 1 Tab Tablet) 1 tab PO HS [facility] Last Admin: 12/23/20 20:02 Dose: Not Given Documented by: Sodium Chloride (0.9 % Sodium Chloride 10 Ml Syringe) 10 ml IV Q8 [facility] Last Admin: 12/24/20 16:45 Dose: 10 ml Documented by: Throat Lozenges (Benzocaine/Menthol 1 Lozenge) 1 lozenge PO PRN PRN PRN Reason: Sore Throat Last Admin: 12/22/20 22:03 Dose: 1 lozenge Documented by: Vancomycin HCl (Vancomycin Per Pharmacy) 1 order IV UD [facility]; Protocol A/P Assessment and plan (1) Cellulitis of trunk: Status: Acute Qualifiers: Site of cellulitis of trunk: abdominal wall Qualified Code(s): L03.311 - Cellulitis of abdominal wall (2) Sepsis: Status: Acute Qualifiers: Sepsis acute organ dysfunction status: without acute organ dysfunction Sepsis type: sepsis due to unspecified organism Qualified Code(s): A41.9 - Sepsis, unspecified organism (3) Gram-positive bacteremia: Status: Acute (4) Anemia, normocytic normochromic: Status: Acute Narrative A/P Narrative: 1. Sepsis with gram positive bacteremia and abdominal surgical site infection: Blood culture grew coagulase negative staph; Wound culture grew Enterobacter Cloacae Complex and S aureus Repeat Blood culture today 2D echocardiogram to rule out endocarditis d/c Vancomycin Zosyn Percocet PRN pain Tylenol PRN fever PT OT evaluation and treatment for placement planning Continue to follow plastic surgeon recs. for wound care management 2. Anemia, normocytic normochromic: cbc w/ auto diff daily to trend H/H; transfuse pRBC if hemoglobin <7.0, active bleeding, or if patient becomes symptomatic from anemia 3. Cough with yellow sputum: Tessalon PRN cough Repeat CXR to rule out pneumonia Time Spent With Patient Time: Total time spent is greater than 50% in coordination of care (as documented) at patient's floor/unit and/or counseling patient: Total time spent with greater than 50% in coordination of care (as documented) at patient's floor/unit and/or counseling patient:: 15 - 24 minutes QUALITY Stroke Symptom Onset Unknown: No VTE Deep Vein Thrombosis/Pulmonary Embolism Present on Admission: No
[2020-12-24] MEDS: SENNOSIDES/DOCUSATE SODIUM 1 TAB TABLET PO SCH (19:25)
[2020-12-25] MEDS: PIPERACILLIN SODIUM/TAZOBACTAM 3.375 GM in DEXTROSE 5% IN WATER 50 ML IV SCH ×4 (00:16→18:11)
[2020-12-25] MEDS: BENZONATATE 100 MG CAPSULE PO SCH ×4 (00:17→15:04)
[2020-12-25] MEDS: ACETAMINOPHEN 325 MG TABLET PO PRN ×2 (04:06→15:25)
[2020-12-25] MEDS: 0.9 % SODIUM CHLORIDE 10 ML SYRINGE IV SCH ×3 (05:39→20:37)
[2020-12-25] MEDS: oxyCODONE/APAP 5/325MG TABLET PO PRN ×3 (05:44→20:45)
[2020-12-25 07:55] LABS: Basophils # (Auto) 0.04 K/mcL (0.00-0.20); Basophils % (Auto) 0.3 % (0.0-2.0); Eosinophils # (Auto) 1.13 K/mcL (0.00-0.70); Eosinophils % (Auto) 9.9 % (0.0-7.0); Hematocrit 32.6 % (36.0-48.0); Hemoglobin 10.7 g/dL (12.0-15.0); Lymphocytes # (Auto) 2.68 K/mcL (1.50-4.80); Lymphocytes % (Auto) 23.4 % (15.0-49.0); Mean Cell Volume 100.3 fL (80.0-100.0); Mean Corpuscular HGB Conc 32.8 g/dL (31.0-36.0); Mean Platelet Volume 9.8 fL (7.4-10.4); Monocytes # (Auto) 0.97 K/mcL (0.10-0.90); Monocytes % (Auto) 8.5 % (1.0-12.0); Neutrophils % (Auto) 57.9 % (38.0-78.0); Platelet Count 288 K/mcL (140-440); RBC 3.25 M/mcL (4.00-5.20); Red Cell Distribution Width 13.5 % (11.5-14.5); WBC 11.4 K/mcL (4.5-11.0)
[2020-12-25 08:25] LABS: ALT/SGPT 105 U/L (<40); AST/SGOT 136 U/L (<32); Albumin 2.3 gm/dL (3.2-5.2); Albumin/Globulin Ratio 0.9 (1.0-2.3); Alkaline Phosphatase 303 U/L (39-117); Bilirubin,Direct < 0.2 mg/dL (0-0.3); Bilirubin,Total 0.4 mg/dL (0.1-1.0); Blood Urea Nitrogen 7 mg/dL (6-20); Calcium 7.7 mg/dL (8.6-10.4); Carbon Dioxide 22 mmol/L (22-30); Chloride 108 mmol/L (96-108); Globulin 2.5 gm/dL (2.2-3.7); Glomerular Filtration Rate 99; Glucose 73 mg/dL (70-105); Lactate Dehydrogenase 289 U/L (135-225); Phosphorous 3.1 mg/dL (2.5-4.5); Triglycerides 189 mg/dL (<150); Uric Acid 2.5 mg/dL (2.5-8.0)
[2020-12-25] MEDS: HEPARIN 5,000 UNIT/ML VIAL SQ SCH ×2 (10:41→20:37)
[2020-12-25] MEDS: LEVOTHYROXINE 25 MCG TABLET PO SCH (10:41)
[2020-12-25] MEDS: DOCUSATE SODIUM 100 MG CAPSULE PO SCH ×2 (10:41→19:26)
[2020-12-25] MEDS: MULTIVIT,THER IRON,CA,FA & MIN 1 TABLET PO SCH (10:41)
[2020-12-25] MEDS: ESTRADIOL 1 MG TABLET PO SCH (10:41)
[2020-12-25] MEDS: VANCOMYCIN 1,500 MG in 0.9 % SODIUM CHLORIDE 500 ML IV SCH (11:09)
[2020-12-25] MEDS: BENZONATATE 100 MG CAPSULE PO PRN ×2 (13:19→18:10)
--- NOTE | 2020-12-25 14:41 | XRay Report ---
HISTORY: Cough fever and weakness FINDINGS: Patient is developing mild diffuse alveolar infiltrates in both lungs. The greatest involvement overlies right lower hilum. These are new since prior x-ray done on 12/21/20. Lung volumes are smaller today than they were previously due to suboptimal inspiration. There is no pleural effusion. No adenopathy is detected. The heart size is normal. IMPRESSION: New onset bilateral pneumonia Interpreted and Authenticated by: Massimo Grullon 12/25/20
--- NOTE | 2020-12-25 17:30 | Internal Med Progress Note ---
SUBJECTIVE Subjective Patient information: Note initiated : 12/25/20 at 5:23 pm Service Date, if different from initiated Date: [] Patient: Daisy Murphy 60 y/o F admitted on 12/22/20 for fever, cough, weakness. Chief Complaint: [abdominal surgical site infection] Overnight: Low grade fever with Tmax 37.4 overnight. Otherwise there was no other major overnight events. Subjective: Denies abdominal pain. Intermittent mild cough, no sputum production. Low grade fever with Tmax 37.4 overnight. Constitutional Vitals: Vital Signs Temp Pulse Resp BP Pulse Ox 36.4 C 79 15 147/73 97 12/25/20 16:00 12/25/20 16:00 12/25/20 16:00 12/25/20 16:00 12/25/20 16:00 Period Temp Pulse Resp BP Sys/Hernandez Pulse Ox Last 24 Hr 36.4 C-37.4 C 66-93 14-18 121-147/63-74 91-100 Intake and Output 12/25/20 12/25/20 12/25/20 05:59 13:59 21:59 Intake Total 1000 300 240 Output Total 900 Balance 100 300 240 Intake & Output: Intake & Output 12/25/20 12/25/20 12/25/20 05:59 13:59 21:59 Intake Total 1000 300 240 Output Total 900 Balance 100 300 240 Intake: IV 550 100 Zosyn 3.375 gm In Dextrose 5% 50 100 in Water 50 ml @ 100 mls/hr IV Q6H VANCE Rx#:[id number] Vancomycin 1,500 mg In Sodium 500 Chloride 0.9% 500 ml @ 333.3 mls/hr IV Q12H VANCE Rx#: [id number] Oral 450 200 240 Output: Void Amount 900 Other: Meal Breakfast Percent of Meal Consumed 50% Stool Size Moderate Stool Consistency Loose # Bowel Movements 1 General appearance: cooperative and no acute distress Head Head exam: Present atraumatic and normocephalic Eye Eye exam: Present EOMI and PERRL ENT ENT exam: Present mucous membranes moist, normal exam and normal external ear exam Neck Neck exam: Present normal inspection; Absent lymphadenopathy, tenderness and thyromegaly Respiratory Respiratory exam: Absent accessory muscle use, respiratory distress and wheezes Cardiovascular Cardiovascular exam: Present normal rate and rhythm; Absent JVD GI/Abdominal GI/Abdominal exam: Present normal bowel sounds and soft; Absent organomegaly and tenderness Extremities Exam Extremities exam: Present full ROM, normal capillary refill and normal inspection; Absent tenderness Neurological Exam Neurological exam: Present alert, CN II-XII intact and oriented X3; Absent motor sensory deficit Psychiatric Psychiatric exam: Present normal affect and normal mood; Absent anxious and depressed Skin Skin exam: Present dry Additional comments: Abdominal wall surgical site with sutures in place, with slight amount of serous discharge coming out. No tenderness to palpation around the incision. OBJ DATA Labs CBC & Chem 7: 12/25/20 05:28 12/25/20 05:28 Labs: Abnormal Lab Results 12/25/20 12/25/20 12/24/20 05:28 05:28 06:14 WBC 11.4 H RBC 3.25 L Hgb 10.7 L Hct 32.6 L MCV 100.3 H Neut % (Auto) Lymph % (Auto) Eos % (Auto) 9.9 H Lymph # (Auto) [place] # (Auto) 0.97 H Eos # (Auto) 1.13 H Absolute Neutrophils Chloride Carbon Dioxide 21 L Anion Gap 6.0 L Glucose 106 H Uric Acid 1.8 L Calcium 7.7 L 7.6 L Phosphorus 2.2 L GGT 140 H 110 H AST 136 H 95 H ALT 105 H 73 H Alkaline Phosphatase 303 H 243 H Lactate Dehydrogenase 289 H 248 H Total Protein 4.8 L 4.8 L Albumin 2.3 L 2.3 L Albumin/Globulin Ratio 0.9 L 0.9 L Triglycerides 189 H 190 H 12/24/20 12/23/20 12/23/20 06:14 05:47 05:47 WBC 11.1 H RBC 3.21 L 3.58 L Hgb 10.6 L 11.8 L Hct 31.4 L 35.0 L MCV Neut % (Auto) 79.0 H Lymph % (Auto) 9.6 L Eos % (Auto) 8.5 H 7.1 H Lymph # (Auto) 1.06 L [place] # (Auto) Eos # (Auto) 0.79 H 0.78 H Absolute Neutrophils 8.75 H Chloride 109 H Carbon Dioxide Anion Gap 7.0 L Glucose 108 H Uric Acid 1.9 L Calcium 8.1 L Phosphorus 2.3 L GGT 125 H AST 32 H ALT 57 H Alkaline Phosphatase 274 H Lactate Dehydrogenase 230 H Total Protein 5.1 L Albumin 2.7 L Albumin/Globulin Ratio Triglycerides 231 H Meds: Medications Acetaminophen (Acetaminophen 325 Mg Tablet) 650 mg PO Q4-6HP PRN; Protocol PRN Reason: Per Pain Protocol/Fever > 101 Last Admin: 12/25/20 15:25 Dose: 650 mg Documented by: Benzonatate (Benzonatate 100 Mg Capsule) 200 mg PO Q4HP PRN PRN Reason: Cough Last Admin: 12/25/20 13:19 Dose: 200 mg Documented by: Bisacodyl (Bisacodyl 10 Mg Supp.Rect) 10 mg AL Q2-3DAYS PRN PRN Reason: Constipation Docusate Sodium (Docusate Sodium 100 Mg Capsule) 100 mg PO BID [facility] Last Admin: 12/25/20 10:41 Dose: 100 mg Documented by: Estradiol (Estradiol 1 Mg Tablet) 2 mg PO DAILY [facility] Last Admin: 12/25/20 10:41 Dose: 2 mg Documented by: Heparin Sodium (Porcine) (Heparin 5,000 Unit/Ml Vial) 5,000 unit SQ Q12 [facility] Last Admin: 12/25/20 10:41 Dose: 5,000 unit Documented by: Potassium Chloride 40 meq/ (Dextrose) 520 mls @ 130 mls/hr IV UD PRN PRN Reason: K+ = or < 3.5 Last Infusion: 12/24/20 04:14 Dose: Infused Documented by: Acetaminophen (Ofirmev) 650 mg in 65 mls @ 130 mls/hr IV Q6HP PRN; Protocol PRN Reason: Per Pain Protocol/Fever > 101 Last Infusion: 12/24/20 17:29 Dose: Infused Documented by: Magnesium Sulfate (Magnesium Sulfate) 2 gm in 50 mls @ 50 mls/hr IV UD PRN PRN Reason: MG = or < 1.7 Piperacillin Sod/Tazobactam (Sod 3.375 gm/ Dextrose) 50 mls @ 100 mls/hr IV Q6H [facility]; Protocol Last Infusion: 12/25/20 13:14 Dose: Infused Documented by: Iron Carb/Multivit/Giles/Folic Acid (Multivit,Ther Iron,Ca,Fa & Min 1 Tablet) 1 tab PO DAILY [facility] Last Admin: 12/25/20 10:41 Dose: 1 tab Documented by: Levothyroxine Sodium (Levothyroxine 25 Mcg Tablet) 25 mcg PO QAMAC [facility] Last Admin: 12/25/20 10:41 Dose: 25 mcg Documented by: Loperamide HCl (Loperamide 2 Mg Capsule) 2 mg PO Q2HP PRN PRN Reason: Diarrhea Last Admin: 12/24/20 19:28 Dose: 2 mg Documented by: Melatonin (Melatonin 3 Mg Tablet) 3 mg PO HSP PRN PRN Reason: Insomnia Last Admin: 12/22/20 21:49 Dose: 3 mg Documented by: Methocarbamol (Methocarbamol 750 Mg Tablet) 750 mg PO HSP PRN PRN Reason: Muscle Spasm Ondansetron HCl (Ondansetron 4 Mg/2 Ml Vial) 4 mg IV Q4HP PRN PRN Reason: Nausea And Vomiting Ondansetron HCl (Ondansetron 4 Mg Odt Tablet) 4 mg SL Q4-6HP PRN; Protocol PRN Reason: Nausea And Vomiting Ondansetron HCl (Ondansetron 4 Mg/2 Ml Vial) 4 mg IV Q4-6HP PRN; Protocol PRN Reason: Nausea And Vomiting Oxycodone/Acetaminophen (Oxycodone/Apap 5/325mg Tablet) 1 tab PO Q4HP PRN; Protocol PRN Reason: Per Pain Protocol Last Admin: 12/25/20 10:56 Dose: 1 tab Documented by: Polyethylene Glycol (Polyethylene Glycol 3350 17 Gm Packet) 17 gm PO DAILYP PRN PRN Reason: Constipation Last Admin: 12/23/20 10:09 Dose: 17 gm Documented by: Potassium Chloride (Potassium Chloride 20 Meq Packet) 40 meq PO DAILYP PRN PRN Reason: K+ < 3.5 Senna/Docusate Sodium (Sennosides/Docusate Sodium 1 Tab Tablet) 1 tab PO [facility] Last Admin: 12/24/20 19:25 Dose: Not Given Documented by: Sodium Chloride (0.9 % Sodium Chloride 10 Ml Syringe) 10 ml IV Q8 [facility] Last Admin: 12/25/20 15:48 Dose: 10 ml Documented by: Throat Lozenges (Benzocaine/Menthol 1 Lozenge) 1 lozenge PO PRN PRN PRN Reason: Sore Throat Last Admin: 12/22/20 22:03 Dose: 1 lozenge Documented by: A/P Assessment and plan (1) Cellulitis of trunk: Status: Acute Qualifiers: Site of cellulitis of trunk: abdominal wall Qualified Code(s): L03.311 - Cellulitis of abdominal wall (2) Sepsis: Status: Acute Qualifiers: Sepsis acute organ dysfunction status: without acute organ dysfunction Sepsis type: sepsis due to unspecified organism Qualified Code(s): A41.9 - Sepsis, unspecified organism (3) Gram-positive bacteremia: Status: Acute (4) Anemia, normocytic normochromic: Status: Acute (5) Healthcare-associated pneumonia: Status: Acute Narrative A/P Narrative: 1. Sepsis with gram positive bacteremia and abdominal surgical site infection: Blood culture grew coagulase negative staph; Wound culture grew Enterobacter Cloacae Complex and S aureus Blood culture was repeated on 12/24/20 2D echocardiogram: no endocardial endocarditis Zosyn; consider switching to oral antibiotics such as Levaquin upon discharge Percocet PRN pain Tylenol PRN fever PT OT evaluation and treatment for placement planning Continue to follow plastic surgeon recs. for wound care management Consult ID Dr. Bergeron 2. Anemia, normocytic normochromic: cbc w/ auto diff daily to trend H/H; transfuse pRBC if hemoglobin <7.0, active bleeding, or if patient becomes symptomatic from anemia 3. Cough with yellow sputum: Tessalon PRN cough Repeat CXR to rule out pneumonia-->new onset bilateral pneumonia 4. Hospital acquired pneumonia: Zosyn cbc w/ auto diff in AM to trend WBC Tylenol PRN fever Consult ID Dr. Bergeron Tessalon PRN cough Time Spent With Patient Time: Total time spent is greater than 50% in coordination of care (as documented) at patient's floor/unit and/or counseling patient: QUALITY Stroke Symptom Onset Unknown: No VTE Deep Vein Thrombosis/Pulmonary Embolism Present on Admission: No
[2020-12-25] MEDS: SENNOSIDES/DOCUSATE SODIUM 1 TAB TABLET PO SCH (19:26)
[2020-12-26] MEDS: PIPERACILLIN SODIUM/TAZOBACTAM 3.375 GM in DEXTROSE 5% IN WATER 50 ML IV SCH ×2 (00:05→05:27)
[2020-12-26] MEDS: BENZONATATE 100 MG CAPSULE PO PRN ×2 (00:32→05:27)
[2020-12-26] MEDS: oxyCODONE/APAP 5/325MG TABLET PO PRN ×4 (04:36→23:45)
[2020-12-26] MEDS: 0.9 % SODIUM CHLORIDE 10 ML SYRINGE IV SCH ×4 (06:05→21:03)
--- NOTE | 2020-12-26 07:04 | Infectious Disease Consult ---
HPI Data of Consult Primary Care Provider: Yanci Santiago Consult Narrative cc:: CC: Reji Villa is a 60-year-old obese woman who was admitted in the hospital on December 22. She had abdominal plasty surgery on November 21. Following the procedure, she developed upper respiratory infection with acquired respiratory illness from [facility]. She developed cough and subsequent dehiscence of the abdominal plasty site after the first sutures were removed. She does not report any antibiotic therapy at that time. She has a history of previous gastric sleeve and diet-controlled diabetes. Dr. Magdaleno completed secondary wound closure on December 19. Last Tuesday, December 20, she had shaking chills. She had some drainage last Tuesday and was admitted in the hospital December 22. Her highest temperature this admission was 100.1 on December 22. Culture was taken of the drainage which has grown MSSA and Enterobacter resistant to ampicillin. She was initially started on Rocephin and Vanco. Rocephin was discontinued and replaced by Zosyn. She remains on Zosyn currently hospital day 5. A CT scan of her chest was completed December 21 that showed some thickening of airways in the lower lobes and interpreted as bronchitis. She has continued to have midline wound drainage. Mild incisional pain. Sutures remain. Dr. Magdaleno has been involved in her care. Dr. Ricardo hospitalist asked for consultation. A blood culture was completed on December 21 and a bottle turn positive for coag negative staph. I would not consider this significant. Review of Systems Review of systems: General: Subjective fever and chills prior to admission. HEENT: No headache or sore throat. No neck complaints she does have a previous history of cervical spine fusion. Pulmonary: Recent URI that triggered coughing and wound dehiscence. Cardiac: Echocardiogram has been completed this hospital stay. GI: No diarrhea. Some incisional pain. She reports suprapubic discomfort. history of bladder sling procedure. Skin no complaints of rash. Extremities: She is tired of being poked for peripheral lines. A PICC line will be ordered. PFSH PFSH All Active Problems (Updated 12/26/20 @ 07:04 by Pepe Bergeron MD) Infection caused by Enterobacter cloacae (Acute) MSSA (methicillin susceptible Staphylococcus aureus) (Acute) Surgical site infection (Acute) Healthcare-associated pneumonia (Acute) Anemia, normocytic normochromic (Acute) Gram-positive bacteremia (Acute) Upper respiratory infection (Acute) Otitis media (Acute) Bronchitis (Acute) Candidal vaginitis (Acute) Respiratory crackles 1/[address] up posterior chest wall on left side (Acute) RUQ abdominal pain (Acute) Right flank discomfort (Acute) Cellulitis of trunk (Acute) Sepsis (Acute) Wheezing (Acute) Sinusitis, acute (Acute) Medical History (Updated 12/26/20 @ 07:04 by Pepe Bergeron MD) Upper respiratory infection Recent viral URI. Recommendations: 1. Place PICC line 2. DC vancomycin. 3. Start Invanz 1 g daily upon discharge. I would be happy to see her in follow-up in 2 weeks. Continue Invanz for 2 weeks. Check weekly CBC CMP. Thank you very much. Social History alcohol intake frequency: a few times a month substance use type: does not use MEDS/ALLERGIES Home Medications and Allergies Home Medications Medication Instructions Recorded Confirmed Type levothyroxine 25 mcg PO DAILY 01/08/17 12/22/20 History estradiol 2 mg PO DAILY 11/28/17 12/22/20 History oxycodone-acetaminophen 5 mg-325 1 tab PO Q6HP PRN 09/15/18 12/22/20 History mg tablet benzonatate 200 mg PO Q4H 12/22/20 12/22/20 History methocarbamol 750 mg PO HSP PRN 12/22/20 12/22/20 History Allergies Allergy/AdvReac Type Severity Reaction Status Date / Time tramadol AdvReac Mild Itching Verified 12/23/20 07:11 Physical Examination Vital Signs Vital signs: December 21 99.7 December 22 100.1 December 25 99.4 currently 99. Temp Pulse Resp BP Pulse Ox 99.0 F 95 H 16 149/75 94 12/26/20 04:22 12/26/20 04:22 12/26/20 04:22 12/26/20 04:22 12/26/20 04:22 Additional Exam Additional exam: General: No acute distress. She did not cough during my exam. HEENT: Mouth slightly dry. No facial swelling. Neck is supple. Lungs are clear bilaterally no wheezing. Heart: Regular rate and rhythm without murmur. Abdomen: Obese soft nontender positive bowel sounds. She has a low abdominal incision across her entire abdomen. There is incisional erythema I do not appreciate any fluctuance along the entire incision. However, I was able to express some middle seropurulent fluid. The wound edges have not come together at the central part of the incision. Extremities without edema. Results Laboratory Findings CBC and BMP: 12/25/20 05:28 12/25/20 05:28 Abnormal lab findings: Abnormal Labs 12/21/20 12/21/20 12/21/20 19:58 19:58 20:55 WBC 12.3 H RBC 3.63 L Hgb Hct 35.6 L MCV MCH 34.2 H Neut % (Auto) 91.5 H Lymph % (Auto) 1.6 L Eos % (Auto) Lymph # (Auto) 0.20 L [place] # (Auto) Eos # (Auto) Absolute Neutrophils 11.24 H POC Sodium 131 L Chloride Carbon Dioxide POC Total CO2 19 L Anion Gap Glucose POC Glucose 117 H Uric Acid Calcium POC WB Ioniz Calcium 0.97 L Phosphorus GGT AST ALT Alkaline Phosphatase Lactate Dehydrogenase Total Protein Albumin Albumin/Globulin Ratio Triglycerides Procalcitonin Urine Appearance Hazy A 12/22/20 12/23/20 12/23/20 07:47 05:47 05:47 WBC 11.1 H RBC 3.58 L Hgb 11.8 L Hct 35.0 L MCV MCH Neut % (Auto) 79.0 H Lymph % (Auto) 9.6 L Eos % (Auto) 7.1 H Lymph # (Auto) 1.06 L Dickenson # (Auto) Eos # (Auto) 0.78 H Absolute Neutrophils 8.75 H POC Sodium Chloride 109 H Carbon Dioxide POC Total CO2 Anion Gap 7.0 L Glucose 108 H POC Glucose Uric Acid 1.9 L Calcium 8.1 L POC WB Ioniz Calcium Phosphorus 2.3 L GGT 125 H AST 32 H ALT 57 H Alkaline Phosphatase 274 H Lactate Dehydrogenase 230 H Total Protein 5.1 L Albumin 2.7 L Albumin/Globulin Ratio Triglycerides 231 H Procalcitonin 1.15 H Urine Appearance 12/24/20 12/24/20 12/25/20 06:14 06:14 05:28 WBC 11.4 H RBC 3.21 L 3.25 L Hgb 10.6 L 10.7 L Hct 31.4 L 32.6 L MCV 100.3 H MCH Neut % (Auto) Lymph % (Auto) Eos % (Auto) 8.5 H 9.9 H Lymph # (Auto) [place] # (Auto) 0.97 H Eos # (Auto) 0.79 H 1.13 H Absolute Neutrophils POC Sodium Chloride Carbon Dioxide 21 L POC Total CO2 Anion Gap Glucose 106 H POC Glucose Uric Acid 1.8 L Calcium 7.6 L POC WB Ioniz Calcium Phosphorus 2.2 L GGT 110 H AST 95 H ALT 73 H Alkaline Phosphatase 243 H Lactate Dehydrogenase 248 H Total Protein 4.8 L Albumin 2.3 L Albumin/Globulin Ratio 0.9 L Triglycerides 190 H Procalcitonin Urine Appearance 12/25/20 05:28 WBC RBC Hgb Hct MCV MCH Neut % (Auto) Lymph % (Auto) Eos % (Auto) Lymph # (Auto) [place] # (Auto) Eos # (Auto) Absolute Neutrophils POC Sodium Chloride Carbon Dioxide POC Total CO2 Anion Gap 6.0 L Glucose POC Glucose Uric Acid Calcium 7.7 L POC WB Ioniz Calcium Phosphorus GGT 140 H AST 136 H ALT 105 H Alkaline Phosphatase 303 H Lactate Dehydrogenase 289 H Total Protein 4.8 L Albumin 2.3 L Albumin/Globulin Ratio 0.9 L Triglycerides 189 H Procalcitonin Urine Appearance Microbiology: Microbiology 12/21/20 20:18 Blood Blood Culture - Preliminary 12/24/20 09:17 Blood Blood Culture - Preliminary 12/24/20 09:10 Blood Blood Culture - Preliminary 12/24/20 15:10 Stool C. difficile GDH Antigen & Toxins - Final 12/21/20 19:58 Blood Blood Culture - Preliminary Coagulase negative staph 12/21/20 21:05 Abdomen - Lower Gram Stain - Final 12/21/20 21:05 Abdomen - Lower Wound Culture - Final Enterobacter Cloacae Complex Staphylococcus aureus I reviewed the CT scan of the chest from December 21 that did not show obvious signs of pneumonia. December 23 white count 11.1 December 25 white count 11.4.'s single bottle + December 21 for coag negative staph not significant. December 21 wound culture grew and ampicillin resistant Enterobacter and MSSA. A/P Assessment and plan (1) Surgical site infection: Status: Acute Comment: Genny is a 60-year-old obese woman who had abdominoplasty on November 21. She developed an upper respiratory infection that caused coughing and wound dehiscence following first set of suture removal. She is postop day 7 from secondary wound closure. She has developed surgical site infection with MSSA and Enterobacter. She is currently on Zosyn plus Vanco. She continues to have drainage from the center part of her incisional wound. She does have incisional cellulitis. I am expecting 2 to 3 weeks of IV antibiotics. A PICC line will be placed. (2) MSSA (methicillin susceptible Staphylococcus aureus): Status: Acute Comment: Zosyn at this time will cover both MSSA and Enterobacter. (3) Infection caused by Enterobacter cloacae: Status: Acute Comment: Continue Zosyn. (4) Gram-positive bacteremia: Status: Acute Comment: DC vancomycin. I am not concerned about the coag negative staph positive blood culture. (5) Upper respiratory infection: Status: Acute Comment: Recent viral URI. Recommendations: 1. Place PICC line 2. DC vancomycin. 3. Start Invanz 1 g daily upon discharge. I would be happy to see her in follow-up in 2 weeks. Continue Invanz for 2 weeks. Check weekly CBC CMP. Thank you very much. Qualifiers: URI type: acute nasopharyngitis (common cold) Qualified Code(s): J00 - Acute nasopharyngitis [common cold] Time Spent With Patient Time: Total time spent is greater than 50% in coordination of care (as do cumented) at patient's floor/unit and/or counseling patient:
[2020-12-26 07:05] LABS: Basophils # (Auto) 0.04 K/mcL (0.00-0.20); Basophils % (Auto) 0.4 % (0.0-2.0); Eosinophils % (Auto) 8.8 % (0.0-7.0); Hematocrit 31.9 % (36.0-48.0); Hemoglobin 10.6 g/dL (12.0-15.0); Lymphocytes # (Auto) 2.89 K/mcL (1.50-4.80); Lymphocytes % (Auto) 28.3 % (15.0-49.0); Mean Cell Volume 97.3 fL (80.0-100.0); Mean Corpuscular HGB Conc 33.2 g/dL (31.0-36.0); Mean Platelet Volume 9.9 fL (7.4-10.4); Monocytes # (Auto) 0.86 K/mcL (0.10-0.90); Monocytes % (Auto) 8.4 % (1.0-12.0); Neutrophils % (Auto) 54.1 % (38.0-78.0); Platelet Count 330 K/mcL (140-440); RBC 3.28 M/mcL (4.00-5.20); Red Cell Distribution Width 13.2 % (11.5-14.5); WBC 10.2 K/mcL (4.5-11.0)
[2020-12-26] MEDS: LEVOTHYROXINE 25 MCG TABLET PO SCH (07:10)
[2020-12-26 07:33] LABS: ALT/SGPT 138 U/L (<40); AST/SGOT 170 U/L (<32); Albumin 2.7 gm/dL (3.2-5.2); Albumin/Globulin Ratio 1.1 (1.0-2.3); Alkaline Phosphatase 326 U/L (39-117); Bilirubin,Direct < 0.2 mg/dL (0-0.3); Bilirubin,Total 0.3 mg/dL (0.1-1.0); Blood Urea Nitrogen 7 mg/dL (6-20); Calcium 7.7 mg/dL (8.6-10.4); Carbon Dioxide 26 mmol/L (22-30); Chloride 102 mmol/L (96-108); Globulin 2.4 gm/dL (2.2-3.7); Glomerular Filtration Rate 94; Glucose 76 mg/dL (70-105); Lactate Dehydrogenase 244 U/L (135-225); Phosphorous 3.2 mg/dL (2.5-4.5); Triglycerides 215 mg/dL (<150); Uric Acid 2.6 mg/dL (2.5-8.0)
[2020-12-26] MEDS: ESTRADIOL 1 MG TABLET PO SCH (08:20)
[2020-12-26] MEDS: MULTIVIT,THER IRON,CA,FA & MIN 1 TABLET PO SCH (08:21)
[2020-12-26] MEDS: HEPARIN 5,000 UNIT/ML VIAL SQ SCH ×2 (08:21→21:03)
[2020-12-26] MEDS: ACETAMINOPHEN 325 MG TABLET PO PRN (08:22)
[2020-12-26] MEDS: DOCUSATE SODIUM 100 MG CAPSULE PO SCH ×2 (10:09→19:54)
[2020-12-26] MEDS ORDERED: LORazepam 1 MG TABLET PO PRN (10:30)
[2020-12-26] MEDS ORDERED: 0.9 % SODIUM CHLORIDE 10 ML SYRINGE IV PRN (10:30)
--- NOTE | 2020-12-26 10:34 | Internal Med Progress Note ---
SUBJECTIVE Subjective Patient information: Note initiated : 12/26/20 at 10:32 am Service Date, if different from initiated Date: [] Patient: Daisy Murphy 60 y/o F admitted on 12/22/20 for fever, cough, weakness. Chief Complaint: [abdominal surgical site infection] Overnight: afebrile. Otherwise there was no other major overnight events. Subjective: Denies abdominal surgical site pain. Denies fever chills or sweating. Denies nausea vomiting diarrhea or constipation. Denies general body weakness. Constitutional Vitals: Vital Signs Temp Pulse Resp BP Pulse Ox 37.1 C 95 H 17 150/77 94 12/26/20 09:07 12/26/20 07:24 12/26/20 08:32 12/26/20 07:24 12/26/20 08:32 Period Temp Pulse Resp BP Sys/Hernandez Pulse Ox Last 24 Hr 36.2 C-37.2 C 77-95 15-18 135-151/68-77 94-97 Intake and Output 12/25/20 12/26/20 12/26/20 21:59 05:59 13:59 Intake Total 530 330 450 Output Total 550 700 Balance -20 -370 450 Weight 90.52 kg Intake & Output: Intake & Output 12/25/20 12/26/20 12/26/20 21:59 05:59 13:59 Intake Total 530 330 450 Output Total 550 700 Balance -20 -370 450 Weight 90.52 kg Intake: IV 50 50 50 Zosyn 3.375 gm In Dextrose 5% 50 50 50 in Water 50 ml @ 100 mls/hr IV Q6H [facility] Rx#:[id number] Oral 480 280 400 Output: Void Amount 550 700 Other: Meal Dinner Breakfast Percent of Meal Consumed 50% 100% Feeding Ability Independent Urine Appearance Clear Clear Urine Color Dark Yellow Bright Yellow Urine Odor Normal Stool Size Moderate Stool Color Brown Stool Consistency Loose General appearance: cooperative and no acute distress Head Head exam: Present atraumatic and normocephalic Eye Eye exam: Present EOMI and PERRL ENT ENT exam: Present mucous membranes moist, normal exam and normal external ear exam Neck Neck exam: Present normal inspection; Absent lymphadenopathy, tenderness and thyromegaly Respiratory Respiratory exam: Absent accessory muscle use, respiratory distress and wheezes Cardiovascular Cardiovascular exam: Present normal rate and rhythm; Absent JVD GI/Abdominal GI/Abdominal exam: Present normal bowel sounds and soft; Absent organomegaly and tenderness Extremities Exam Extremities exam: Present full ROM, normal capillary refill and normal inspection; Absent tenderness Neurological Exam Neurological exam: Present alert, CN II-XII intact and oriented X3; Absent motor sensory deficit Psychiatric Psychiatric exam: Present normal affect and normal mood; Absent anxious and depressed Skin Skin exam: Present dry; Absent intact Additional comments: Abdominal surgical wound with sutures in place. Pustular discharge. No foul smell. No tenderness to palpation. Positive erythema around the incision. OBJ DATA Labs CBC & Chem 7: 12/26/20 05:26 12/26/20 05:26 Labs: Abnormal Lab Results 12/26/20 12/26/20 12/25/20 05:26 05:26 05:28 WBC RBC 3.28 L Hgb 10.6 L Hct 31.9 L MCV Eos % (Auto) 8.8 H [place] # (Auto) Eos # (Auto) 0.90 H Carbon Dioxide Anion Gap 6.0 L Glucose Uric Acid Calcium 7.7 L 7.7 L Phosphorus GGT 148 H 140 H AST 170 H 136 H ALT 138 H 105 H Alkaline Phosphatase 326 H 303 H Lactate Dehydrogenase 244 H 289 H Total Protein 5.1 L 4.8 L Albumin 2.7 L 2.3 L Albumin/Globulin Ratio 0.9 L Triglycerides 215 H 189 H 12/25/20 12/24/20 12/24/20 05:28 06:14 06:14 WBC 11.4 H RBC 3.25 L 3.21 L Hgb 10.7 L 10.6 L Hct 32.6 L 31.4 L MCV 100.3 H Eos % (Auto) 9.9 H 8.5 H [place] # (Auto) 0.97 H Eos # (Auto) 1.13 H 0.79 H Carbon Dioxide 21 L Anion Gap Glucose 106 H Uric Acid 1.8 L Calcium 7.6 L Phosphorus 2.2 L GGT 110 H AST 95 H ALT 73 H Alkaline Phosphatase 243 H Lactate Dehydrogenase 248 H Total Protein 4.8 L Albumin 2.3 L Albumin/Globulin Ratio 0.9 L Triglycerides 190 H Meds: Medications Acetaminophen (Acetaminophen 325 Mg Tablet) 650 mg PO Q4-6HP PRN; Protocol PRN Reason: Per Pain Protocol/Fever > 101 Last Admin: 12/26/20 08:22 Dose: 650 mg Documented by: Benzonatate (Benzonatate 100 Mg Capsule) 200 mg PO Q4HP PRN PRN Reason: Cough Last Admin: 12/26/20 05:27 Dose: 200 mg Documented by: Bisacodyl (Bisacodyl 10 Mg Supp.Rect) 10 mg NM Q2-3DAYS PRN PRN Reason: Constipation Docusate Sodium (Docusate Sodium 100 Mg Capsule) 100 mg PO BID [facility] Last Admin: 12/26/20 10:09 Dose: Not Given Documented by: Estradiol (Estradiol 1 Mg Tablet) 2 mg PO DAILY [facility] Last Admin: 12/26/20 08:20 Dose: 2 mg Documented by: Heparin Sodium (Porcine) (Heparin 5,000 Unit/Ml Vial) 5,000 unit SQ Q12 [facility] Last Admin: 12/26/20 08:21 Dose: 5,000 unit Documented by: Heparin Sodium (Porcine) (Heparin Flush 10 Units/Ml 5 Ml Syringe) 2 ml IV Q12 [facility] Potassium Chloride 40 meq/ (Dextrose) 520 mls @ 130 mls/hr IV UD PRN PRN Reason: K+ = or < 3.5 Last Infusion: 12/24/20 04:14 Dose: Infused Documented by: Acetaminophen (Ofirmev) 650 mg in 65 mls @ 130 mls/hr IV Q6HP PRN; Protocol PRN Reason: Per Pain Protocol/Fever > 101 Last Infusion: 12/24/20 17:29 Dose: Infused Documented by: Magnesium Sulfate (Magnesium Sulfate) 2 gm in 50 mls @ 50 mls/hr IV UD PRN PRN Reason: MG = or < 1.7 Iron Carb/Multivit/Guest Relations Receptionist/Folic Acid (Multivit,Ther Iron,Ca,Fa & Min 1 Tablet) 1 tab PO DAILY [facility] Last Admin: 12/26/20 08:21 Dose: 1 tab Documented by: Levothyroxine Sodium (Levothyroxine 25 Mcg Tablet) 25 mcg PO QAMAC [facility] Last Admin: 12/26/20 07:10 Dose: 25 mcg Documented by: Loperamide HCl (Loperamide 2 Mg Capsule) 2 mg PO Q2HP PRN PRN Reason: Diarrhea Last Admin: 12/24/20 19:28 Dose: 2 mg Documented by: Lorazepam (Lorazepam 1 Mg Tablet) 1 mg PO Q6HP PRN PRN Reason: ANXIETY/SEDATION Melatonin (Melatonin 3 Mg Tablet) 3 mg PO HSP PRN PRN Reason: Insomnia Last Admin: 12/22/20 21:49 Dose: 3 mg Documented by: Methocarbamol (Methocarbamol 750 Mg Tablet) 750 mg PO HSP PRN PRN Reason: Muscle Spasm Ondansetron HCl (Ondansetron 4 Mg/2 Ml Vial) 4 mg IV Q4HP PRN PRN Reason: Nausea And Vomiting Ondansetron HCl (Ondansetron 4 Mg Odt Tablet) 4 mg SL Q4-6HP PRN; Protocol PRN Reason: Nausea And Vomiting Ondansetron HCl (Ondansetron 4 Mg/2 Ml Vial) 4 mg IV Q4-6HP PRN; Protocol PRN Reason: Nausea And Vomiting Oxycodone/Acetaminophen (Oxycodone/Apap 5/325mg Tablet) 1 tab PO Q4HP PRN; Protocol PRN Reason: Per Pain Protocol Last Admin: 12/26/20 10:14 Dose: 1 tab Documented by: Polyethylene Glycol (Polyethylene Glycol 3350 17 Gm Packet) 17 gm PO DAILYP PRN PRN Reason: Constipation Last Admin: 12/23/20 10:09 Dose: 17 gm Documented by: Potassium Chloride (Potassium Chloride 20 Meq Packet) 40 meq PO DAILYP PRN PRN Reason: K+ < 3.5 Senna/Docusate Sodium (Sennosides/Docusate Sodium 1 Tab Tablet) 1 tab PO HS [facility] Last Admin: 12/25/20 19:26 Dose: Not Given Documented by: Sodium Chloride (0.9 % Sodium Chloride 10 Ml Syringe) 10 ml IV Q8 [facility] Last Admin: 12/26/20 06:05 Dose: 10 ml Documented by: Sodium Chloride (0.9 % Sodium Chloride 10 Ml Syringe) 10 ml IV UD PRN PRN Reason: FLUSH Sodium Chloride (0.9 % Sodium Chloride 10 Ml Syringe) 10 ml IV Q12 [facility] Throat Lozenges (Benzocaine/Menthol 1 Lozenge) 1 lozenge PO PRN PRN PRN Reason: Sore Throat Last Admin: 12/22/20 22:03 Dose: 1 lozenge Documented by: A/P Assessment and plan (1) Cellulitis of trunk: Status: Acute Qualifiers: Site of cellulitis of trunk: abdominal wall Qualified Code(s): L03.311 - Cellulitis of abdominal wall (2) Sepsis: Status: Acute Qualifiers: Sepsis acute organ dysfunction status: without acute organ dysfunction Sepsis type: sepsis due to unspecified organism Qualified Code(s): A41.9 - Sepsis, unspecified organism (3) Anemia, normocytic normochromic: Status: Acute Narrative A/P Narrative: 1. Sepsis with gram positive bacteremia and abdominal surgical site infection: Blood culture grew coagulase negative staph in only 1 bottle-->likely contaminant; Blood culture was repeated on 12/24/20 Wound culture grew Enterobacter Cloacae Complex and S aureus 2D echocardiogram: no endocardial endocarditis Percocet PRN pain Tylenol PRN fever PT OT evaluation and treatment for placement planning Continue to follow plastic surgeon recs. for wound care management Consult ID Dr. Bergeron , recs. appreciated d/c Zosyn Switch to Ertapenam 1gm IV daily for 2 week PICC line insertion Need 2 week follow up with Dr. Bergeron upon discharge. He would like to keep patient over the weekend 2. Anemia, normocytic normochromic: cbc w/ auto diff daily to trend H/H; transfuse pRBC if hemoglobin <7.0, active bleeding, or if patient becomes symptomatic from anemia 3. Cough with yellow sputum: Tessalon PRN cough Repeat CXR to rule out pneumonia-->new onset bilateral pneumonia Time Spent With Patient Time: Total time spent is greater than 50% in coordination of care (as documented) at patient's floor/unit and/or counseling patient: QUALITY Stroke Symptom Onset Unknown: No VTE Deep Vein Thrombosis/Pulmonary Embolism Present on Admission: No
[2020-12-26] MEDS: ERTAPENEM 1 GM in 0.9 % SODIUM CHLORIDE 50 ML IV SCH (12:27)
[2020-12-26] MEDS: SENNOSIDES/DOCUSATE SODIUM 1 TAB TABLET PO SCH (19:54)
[2020-12-27] MEDS: ACETAMINOPHEN 325 MG TABLET PO PRN (04:00)
[2020-12-27] MEDS: 0.9 % SODIUM CHLORIDE 10 ML SYRINGE IV SCH ×4 (04:00→17:11)
[2020-12-27 09:03] LABS: Basophils # (Auto) 0.03 K/mcL (0.00-0.20); Basophils % (Auto) 0.3 % (0.0-2.0); Eosinophils # (Auto) 0.64 K/mcL (0.00-0.70); Eosinophils % (Auto) 7.1 % (0.0-7.0); Hematocrit 30.9 % (36.0-48.0); Hemoglobin 10.2 g/dL (12.0-15.0); Lymphocytes % (Auto) 36.8 % (15.0-49.0); Mean Cell Volume 98.4 fL (80.0-100.0); Mean Platelet Volume 9.8 fL (7.4-10.4); Monocytes # (Auto) 0.94 K/mcL (0.10-0.90); Monocytes % (Auto) 10.5 % (1.0-12.0); Neutrophils % (Auto) 45.3 % (38.0-78.0); Platelet Count 395 K/mcL (140-440); RBC 3.14 M/mcL (4.00-5.20); Red Cell Distribution Width 13.2 % (11.5-14.5)
[2020-12-27 09:33] LABS: ALT/SGPT 97 U/L (<40); AST/SGOT 89 U/L (<32); Albumin 2.6 gm/dL (3.2-5.2); Alkaline Phosphatase 262 U/L (39-117); Bilirubin,Direct < 0.2 mg/dL (0-0.3); Bilirubin,Total 0.3 mg/dL (0.1-1.0); Blood Urea Nitrogen 7 mg/dL (6-20); Calcium 8.1 mg/dL (8.6-10.4); Carbon Dioxide 29 mmol/L (22-30); Chloride 105 mmol/L (96-108); Globulin 2.5 gm/dL (2.2-3.7); Glomerular Filtration Rate 99; Glucose 73 mg/dL (70-105); Lactate Dehydrogenase 226 U/L (135-225); Phosphorous 2.9 mg/dL (2.5-4.5); Triglycerides 172 mg/dL (<150); Uric Acid 3.4 mg/dL (2.5-8.0)
[2020-12-27] MEDS: LEVOTHYROXINE 25 MCG TABLET PO SCH (10:16)
[2020-12-27] MEDS: ESTRADIOL 1 MG TABLET PO SCH (10:16)
[2020-12-27] MEDS: DOCUSATE SODIUM 100 MG CAPSULE PO SCH (10:16)
[2020-12-27] MEDS: HEPARIN 5,000 UNIT/ML VIAL SQ SCH (10:16)
[2020-12-27] MEDS: MULTIVIT,THER IRON,CA,FA & MIN 1 TABLET PO SCH (10:16)
[2020-12-27] MEDS: ERTAPENEM 1 GM in 0.9 % SODIUM CHLORIDE 50 ML IV SCH (10:21)
--- NOTE | 2020-12-27 11:58 | Internal Med Progress Note ---
SUBJECTIVE Subjective Patient information: Note initiated : 12/27/20 at 11:55 am Service Date, if different from initiated Date: [] Patient: Daisy Murphy 60 y/o F admitted on 12/22/20 for fever, cough, weakness. Chief Complaint: [Abdominal wall surgical site infection] Overnight: afebrile. Otherwise there was no other major overnight events. Subjective: Mild soreness of her abdominal incision. Denies fever or chills or general body weakness. Constitutional Vitals: Vital Signs Temp Pulse Resp BP Pulse Ox 36.6 C 80 18 139/80 95 12/27/20 11:53 12/27/20 11:53 12/27/20 11:53 12/27/20 11:53 12/27/20 11:53 Period Temp Pulse Resp BP Sys/Hernandez Pulse Ox Last 24 Hr 36.1 C-36.8 C 75-88 12-18 130-153/70-87 95-96 Intake and Output 12/26/20 12/27/20 12/27/20 21:59 05:59 13:59 Intake Total 400 50 Output Total 1200 1300 Balance -800 -1300 50 Weight 89.443 kg Intake & Output: Intake & Output 12/26/20 12/27/20 12/27/20 21:59 05:59 13:59 Intake Total 400 50 Output Total 1200 1300 Balance -800 -1300 50 Weight 89.443 kg Intake: IV 50 INVanz 1 GM In Sodium Chloride 50 0.9% 50 ml @ 100 mls/hr IV Q24H [facility] Rx#:[id number] Oral 400 Output: Void Amount 1200 1300 Other: Meal Dinner Percent of Meal Consumed 100% Urine Appearance Clear Clear Urine Color Bright Yellow Bright Yellow General appearance: cooperative and no acute distress Head Head exam: Present atraumatic and normocephalic Eye Eye exam: Present EOMI and PERRL ENT ENT exam: Present mucous membranes moist, normal exam and normal external ear exam Neck Neck exam: Present normal inspection; Absent lymphadenopathy, tenderness and thyromegaly Respiratory Respiratory exam: Absent accessory muscle use, respiratory distress and wheezes Cardiovascular Cardiovascular exam: Present normal rate and rhythm; Absent JVD GI/Abdominal GI/Abdominal exam: Present normal bowel sounds and soft; Absent organomegaly and tenderness Additional comments: Abdominal surgical incision with suture in place. Pustular discharge. Mild erythema around the incision. No foul smelling. No tenderness to palpation. Extremities Exam Extremities exam: Present full ROM, normal capillary refill and normal inspection; Absent tenderness Neurological Exam Neurological exam: Present alert, CN II-XII intact and oriented X3; Absent motor sensory deficit Psychiatric Psychiatric exam: Present normal affect and normal mood; Absent anxious and de pressed Skin Skin exam: Present dry and intact OBJ DATA Labs CBC & Chem 7: 12/27/20 05:58 12/27/20 05:58 Labs: Abnormal Lab Results 12/27/20 12/27/20 12/26/20 05:58 05:58 05:26 WBC RBC 3.14 L Hgb 10.2 L Hct 30.9 L MCV Eos % (Auto) 7.1 H [place] # (Auto) 0.94 H Eos # (Auto) Anion Gap 4.0 L Calcium 8.1 L 7.7 L GGT 125 H 148 H AST 89 H 170 H ALT 97 H 138 H Alkaline Phosphatase 262 H 326 H Lactate Dehydrogenase 226 H 244 H Total Protein 5.1 L 5.1 L Albumin 2.6 L 2.7 L Albumin/Globulin Ratio Triglycerides 172 H 215 H 12/26/20 12/25/20 12/25/20 05:26 05:28 05:28 WBC 11.4 H RBC 3.28 L 3.25 L Hgb 10.6 L 10.7 L Hct 31.9 L 32.6 L MCV 100.3 H Eos % (Auto) 8.8 H 9.9 H [place] # (Auto) 0.97 H Eos # (Auto) 0.90 H 1.13 H Anion Gap 6.0 L Calcium 7.7 L GGT 140 H AST 136 H ALT 105 H Alkaline Phosphatase 303 H Lactate Dehydrogenase 289 H Total Protein 4.8 L Albumin 2.3 L Albumin/Globulin Ratio 0.9 L Triglycerides 189 H Meds: Medications Acetaminophen (Acetaminophen 325 Mg Tablet) 650 mg PO Q4-6HP PRN; Protocol PRN Reason: Per Pain Protocol/Fever > 101 Last Admin: 12/27/20 04:00 Dose: 650 mg Documented by: Benzonatate (Benzonatate 100 Mg Capsule) 200 mg PO Q4HP PRN PRN Reason: Cough Last Admin: 12/26/20 05:27 Dose: 200 mg Documented by: Bisacodyl (Bisacodyl 10 Mg Supp.Rect) 10 mg CO Q2-3DAYS PRN PRN Reason: Constipation Docusate Sodium (Docusate Sodium 100 Mg Capsule) 100 mg PO BID [facility] Last Admin: 12/27/20 10:16 Dose: Not Given Documented by: Estradiol (Estradiol 1 Mg Tablet) 2 mg PO DAILY [facility] Last Admin: 12/27/20 10:16 Dose: 2 mg Documented by: Heparin Sodium (Porcine) (Heparin 5,000 Unit/Ml Vial) 5,000 unit SQ Q12 [facility] Last Admin: 12/27/20 10:16 Dose: 5,000 unit Documented by: Heparin Sodium (Porcine) (Heparin Flush 10 Units/Ml 5 Ml Syringe) 2 ml IV Q12 [facility] Last Admin: 12/27/20 10:18 Dose: Not Given Documented by: Potassium Chloride 40 meq/ (Dextrose) 520 mls @ 130 mls/hr IV UD PRN PRN Reason: K+ = or < 3.5 Last Infusion: 12/24/20 04:14 Dose: Infused Documented by: Acetaminophen (Ofirmev) 650 mg in 65 mls @ 130 mls/hr IV Q6HP PRN; Protocol PRN Reason: Per Pain Protocol/Fever > 101 Last Infusion: 12/24/20 17:29 Dose: Infused Documented by: Magnesium Sulfate (Magnesium Sulfate) 2 gm in 50 mls @ 50 mls/hr IV UD PRN PRN Reason: MG = or < 1.7 Ertapenem 1 gm/ Sodium (Chloride) 50 mls @ 100 mls/hr IV Q24H [facility]; Protocol Last Infusion: 12/27/20 10:51 Dose: Infused Documented by: Iron Carb/Multivit/Cameron/Folic Acid (Multivit,Ther Iron,Ca,Fa & Min 1 Tablet) 1 tab PO DAILY [facility] Last Admin: 12/27/20 10:16 Dose: 1 tab Documented by: Levothyroxine Sodium (Levothyroxine 25 Mcg Tablet) 25 mcg PO QAMAC [facility] Last Admin: 12/27/20 10:16 Dose: 25 mcg Documented by: Loperamide HCl (Loperamide 2 Mg Capsule) 2 mg PO Q2HP PRN PRN Reason: Diarrhea Last Admin: 12/24/20 19:28 Dose: 2 mg Documented by: Lorazepam (Lorazepam 1 Mg Tablet) 1 mg PO Q6HP PRN PRN Reason: ANXIETY/SEDATION Melatonin (Melatonin 3 Mg Tablet) 3 mg PO HSP PRN PRN Reason: Insomnia Last Admin: 12/22/20 21:49 Dose: 3 mg Documented by: Methocarbamol (Methocarbamol 750 Mg Tablet) 750 mg PO HSP PRN PRN Reason: Muscle Spasm Ondansetron HCl (Ondansetron 4 Mg/2 Ml Vial) 4 mg IV Q4HP PRN PRN Reason: Nausea And Vomiting Ondansetron HCl (Ondansetron 4 Mg Odt Tablet) 4 mg SL Q4-6HP PRN; Protocol PRN Reason: Nausea And Vomiting Ondansetron HCl (Ondansetron 4 Mg/2 Ml Vial) 4 mg IV Q4-6HP PRN; Protocol PRN Reason: Nausea And Vomiting Oxycodone/Acetaminophen (Oxycodone/Apap 5/325mg Tablet) 1 tab PO Q4HP PRN; Protocol PRN Reason: Per Pain Protocol Last Admin: 12/26/20 23:45 Dose: 1 tab Documented by: Polyethylene Glycol (Polyethylene Glycol 3350 17 Gm Packet) 17 gm PO DAILYP PRN PRN Reason: Constipation Last Admin: 12/23/20 10:09 Dose: 17 gm Documented by: Potassium Chloride (Potassium Chloride 20 Meq Packet) 40 meq PO DAILYP PRN PRN Reason: K+ < 3.5 Last Admin: 12/26/20 11:02 Dose: 40 meq Documented by: Senna/Docusate Sodium (Sennosides/Docusate Sodium 1 Tab Tablet) 1 tab PO HS [facility] Last Admin: 12/26/20 19:54 Dose: Not Given Documented by: Sodium Chloride (0.9 % Sodium Chloride 10 Ml Syringe) 10 ml IV Q8 [facility] Last Admin: 12/27/20 10:22 Dose: 10 ml Documented by: Sodium Chloride (0.9 % Sodium Chloride 10 Ml Syringe) 10 ml IV UD PRN PRN Reason: FLUSH Sodium Chloride (0.9 % Sodium Chloride 10 Ml Syringe) 10 ml IV Q12 [facility] Last Admin: 12/27/20 10:22 Dose: 10 ml Documented by: Throat Lozenges (Benzocaine/Menthol 1 Lozenge) 1 lozenge PO PRN PRN PRN Reason: Sore Throat Last Admin: 12/22/20 22:03 Dose: 1 lozenge Documented by: A/P Assessment and plan (1) Cellulitis of trunk: Status: Acute Qualifiers: Site of cellulitis of trunk: abdominal wall Qualified Code(s): L03.311 - Cellulitis of abdominal wall (2) Sepsis: Status: Acute Qualifiers: Sepsis acute organ dysfunction status: without acute organ dysfunction Sepsis type: sepsis due to unspecified organism Qualified Code(s): A41.9 - Sepsis, unspecified organism (3) Anemia, normocytic normochromic: Status: Acute Narrative A/P Narrative: 1. Sepsis with gram positive bacteremia and abdominal surgical s ite infection: Blood culture grew coagulase negative staph in only 1 bottle-->likely contaminant; Blood culture was repeated on 12/24/20 Wound culture grew Enterobacter Cloacae Complex and S aureus 2D echocardiogram: no endocardial endocarditis Percocet PRN pain Tylenol PRN fever PT OT evaluation and treatment for placement planning Continue to follow plastic surgeon recs. for wound care management Consult ID Dr. Bergeron , recs. appreciated Ertapenem 1gm IV daily for 2 week PICC line insertion Need 2 week follow up with Dr. Bergeron upon discharge. He would like to keep patient over the weekend 2. Anemia, normocytic normochromic: cbc w/ auto diff daily to trend H/H; transfuse pRBC if hemoglobin <7.0, active bleeding, or if patient becomes symptomatic from anemia Time Spent With Patient Time: Total time spent is greater than 50% in coordination of care (as documented) at patient's floor/unit and/or counseling patient: QUALITY Stroke Symptom Onset Unknown: No VTE Deep Vein Thrombosis/Pulmonary Embolism Present on Admission: No
[2020-12-27] MEDS: oxyCODONE/APAP 5/325MG TABLET PO PRN ×2 (12:40→18:16)
--- NOTE | 2020-12-27 15:11 | XRay Report ---
HISTORY: PICC line insertion FINDINGS: A PICC line catheter has been inserted through the left arm. The tip is in the superior vena cava above the right atrium. No pneumothorax, pleural effusion or widening of the mediastinum are present. The lungs are clear. The heart size is normal. IMPRESSION: Well-positioned PICC line. Normal chest Nursing was called with the report Interpreted and Authenticated by: Massimo Grullon 12/27/20
--- NOTE | 2020-12-27 16:54 | Discharge Summary ---
Discharge Provider Provider Patient information: Note initiated : 12/27/20 at 4:51 pm Service Date, if different from initiated Date: [] Patient: Daisy Murphy 60 y/o F admitted on 12/22/20 for fever, cough, weakness. Chief Complaint: [] Date of admission: 12/22/20 01:38 Discharge date: 12/27/20 Primary care physician: Yanci Santiago Consults: 12/22/20 Consult to Physician [CONS] Stat Comment: Consulting Provider: Reji Soto Reason For Exam: Physician to Consult 12/25/20 17:13 Consult to Infectious Disease [CONS] Routine Comment: bacteremia Consulting Provider: Pepe Bergeron Reason For Exam: Physician to Consult Discharge Meds Discharge Medications Home Medications levothyroxine 25 mcg PO DAILY 01/08/17 [History Confirmed 12/22/20 Last Taken 12/21/20 25 mcg] estradiol 2 mg PO DAILY 11/28/17 [History Confirmed 12/22/20 Last Taken 12/21/20 2 mg] oxycodone-acetaminophen 5 mg-325 mg tablet 1 tab PO Q6HP PRN 09/15/18 [History Confirmed 12/22/20 Last Taken 12/21/20 1/2 tab] benzonatate 200 mg PO Q4H 12/22/20 [History Confirmed 12/22/20 Last Taken 12/20/20 200 mg] methocarbamol 750 mg PO HSP PRN 12/22/20 [History Confirmed 12/22/20 Last Taken 12/19/20 750 mg] ertapenem 1 g IM Q24H #8 ea 12/27/20 [Rx Last Taken Unknown] COURSE Hospital Course Hospital course: A/P Narrative: 1. Sepsis with gram positive bacteremia and abdominal surgical site infection: Blood culture grew coagulase negative staph in only 1 bottle-->likely contaminant; Blood culture was repeated on 12/24/20 Wound culture grew Enterobacter Cloacae Complex and S aureus 2D echocardiogram: no endocardial endocarditis Percocet PRN pain Tylenol PRN fever PT OT evaluation and treatment for placement planning Continue to follow plastic surgeon recs. for wound care management Consult ID Dr. Bergeron , recs. appreciated Ertapenem 1gm IV daily for 2 week PICC line insertion Need 2 week follow up with Dr. Bergeron upon discharge. He would like to keep patient over the weekend Discharge diagnosis: Sepsis with bacteremia from abdominal surgical site infection Time Spent with Patient Time attestation: Total time spent providing and/or coordinating discharge services: Time spent: Greater than 30 minutes EXAM Constitutional Vitals: Temp Pulse Resp BP Pulse Ox 97.6 F 89 16 144/80 98 12/27/20 16:00 12/27/20 16:00 12/27/20 16:00 12/27/20 16:00 12/27/20 16:00 Discharge Data Data Completed and Pending Labs on day of discharge: Labs from last 24 hours 12/27/20 12/27/20 05:58 05:58 WBC 9.0 RBC 3.14 L Hgb 10.2 L Hct 30.9 L MCV 98.4 MCH 32.5 MCHC 33.0 RDW 13.2 Plt Count 395 MPV 9.8 Neut % (Auto) 45.3 Lymph % (Auto) 36.8 [place] % (Auto) 10.5 Eos % (Auto) 7.1 H Baso % (Auto) 0.3 Lymph # (Auto) 3.30 [place] # (Auto) 0.94 H Eos # (Auto) 0.64 Baso # (Auto) 0.03 Absolute Neutrophils 4.06 Sodium 138 Potassium 3.7 Chloride 105 Carbon Dioxide 29 Anion Gap 4.0 L BUN 7 Creatinine 0.6 GFR Calculation 99 Glucose 73 Uric Acid 3.4 Calcium 8.1 L Phosphorus 2.9 Magnesium 1.9 Total Bilirubin 0.3 Direct Bilirubin < 0.2 GGT 125 H AST 89 H ALT 97 H Alkaline Phosphatase 262 H Lactate Dehydrogenase 226 H Total Protein 5.1 L Albumin 2.6 L Globulin 2.5 Albumin/Globulin Ratio 1.0 Triglycerides 172 H Preliminary micro results at discharge 12/24/20 09:17 Blood Culture - Preliminary Blood 12/24/20 09:10 Blood Culture - Preliminary Blood Discharge Plan Patient/Caregiver Discharge Instructions Activity: increase activity as tolerated Diet: Regular Diet Activity Restrictions/Additional Instructions: abx finish on 01/05/2021, picc line care and d/c on january 05. cbc/cmp in one week per Dr. Bergeron, send to his office. Prescriptions: New ertapenem 1 gram recon soln 1 g IM Q24H Qty: 8 RF: 0 Continued oxycodone-acetaminophen 5-325 mg tablet 1 tab PO Q6HP PRN (Reason: Pain) RF: 0 levothyroxine 25 MCG tablet 25 mcg PO DAILY RF: 0 estradiol 2 MG tablet 2 mg PO DAILY RF: 0 methocarbamol 750 mg tablet 750 mg PO HSP PRN (Reason: Muscle Spasm) RF: 0 benzonatate 200 mg capsule 200 mg PO Q4H RF: 0 Follow Up Plan Follow up with: Yanci Santiago MD [Primary Care Provider] - Sadiq Magdaleno MD [Physician] - Pepe Bergeron MD [Physician] - Patient Disposition: Home, Self-Care Prognosis: Fair Overall status at discharge: patient is progressing back to baseline Discharge Orders: Discharge Order (Routine); Ordered 12/27/20 Ordered By: Kenton Smart [facility] VTE Deep Vein Thrombosis/Pulmonary Embolism Present on Admission: No
== END 2020-12-27 18:29 | disposition home or self-care (01) | DRG 862 ==
LOC: ED 19:29 → MEDSUR 12-22 01:38
PROVIDERS: ADMIT Internal Medicine; ATTEND Internal Medicine